=== PATIENT | female | born 1950 | race African-American/Black ===

== ENCOUNTER → 2016-12-13 | Outpatient (CLI) | payer MEDICARE | END | disposition home or self-care (01) | LOC: LABWHC1 16:15 | PROVIDERS: ATTEND Otolaryngology | DX: K11.7 Disturbances of salivary secretion (principal) | CPT/HCPCS: 36415; 86235 ==

== ENCOUNTER 2017-01-24 20:46 | Inpatient (IN) | payer MEDICARE ==
--- NOTE | 2017-01-24 21:35 | ED ---
Abdominal Pain HPI - General Chief Complaint: Abdominal Pain Stated Complaint: Allergic Reaction Time Seen by Provider: 01/24/17 21:24 Source: patient Mode of arrival: wheelchair Limitations: no limitations - History of Present Illness Initial Comments: Love is a 66-year-old female with past medical history significant for lap band procedure which is subsequently been removed as well as insulin-dependent diabetes. She presents to the emergency department today for evaluation of pressure-like epigastric abdominal pain nausea and vomiting. Patient reports that last week she made the decision to transition to a vegan, fat free diet in order to reverse her diabetes. Patient reports that for the past 7 days she has been compliant with this diet. She reports she's been eating primarily leafy green vegetables including Leah spinach. She reports she has had no and will products or fat source starches. She reports that since yesterday she feels like when she eats the food just stays right in her stomach. Patient reports that throughout the day today she has been experiencing pressure in her epigastric region. She reports that anytime she eats she begins heaving and subsequently vomits up her stomach contents. She reports that because of that she hasn't really tried to eat or drink much. She reports that the pain is persistent throughout the day without any relieving factors. The pain is worse with eating. She has nausea after eating. Her last bowel movement was at 3 PM and was normal in color, caliber and consistency. Patient has had multiple abdominal surgeries in the past including an open cholecystectomy greater than 20 years ago, an open appendectomy as a child, a lap band procedure and subsequent removal of lap band due to complications. She denies any history of bowel obstruction or any previous diagnosis of the abdominal adhesions. Patient denies any fever, chills, chest pain, shortness of breath. She does report that her epigastric abdominal pain is worse with deep breaths so she has chosen to take more rapid shallow breaths. She states that today she was wearing her CPAP machine because she felt more comfortable breathing with that today. - Related Data Home Medications Medication Instructions Recorded Confirmed Atenolol [Tenormin] 12.5 mg PO DAILY 01/13/14 01/24/17 Cyclobenzaprine [Flexeril] 10 mg PO DAILY PRN 01/13/14 01/24/17 Digoxin [Lanoxin] 125 mcg PO DAILY 01/13/14 01/24/17 Omeprazole 40 mg PO DAILY PRN 01/13/14 01/24/17 Triamterene-Hctz 37.5-25Mg 1 tab PO QAM 01/13/14 01/24/17 [Maxzide-25] amLODIPine [Norvasc] 5 mg PO DAILY 01/13/14 01/24/17 metFORMIN HCL [Glucophage] 500 mg PO BID 01/13/14 01/24/17 Allopurinol [Zyloprim] 100 mg PO DAILY 01/24/17 01/24/17 Benazepril HCl 10 mg PO HS 01/24/17 01/24/17 Meclizine [Antivert] 12.5 mg PO TID PRN 01/24/17 01/24/17 Naproxen 500 mg PO Q12H PRN 01/24/17 01/24/17 Rosuvastatin [Crestor] 10 mg PO HS 01/24/17 01/24/17 Allergies Allergy/AdvReac Type Severity Reaction Status Date / Time No Known Allergies Allergy Verified 01/24/17 21:48 Review of Systems ROS Statement: Those systems with pertinent positive or pertinent negative responses have been documented in the HPI. ROS Other: All systems not noted in ROS Statement are negative. Constitutional: Denies: fever, chills ENT: Denies: throat pain Respiratory: Denies: cough, dyspnea Cardiovascular: Denies: chest pain, palpitations Endocrine: Denies: fatigue Gastrointestinal: Reports: abdominal pain, nausea, vomiting. Denies: diarrhea, constipation Genitourinary: Denies: urgency, dysuria Musculoskeletal: Denies: back pain Skin: Denies: rash, lesions Neurological: Denies: headache, weakness Psychiatric: Denies: anxiety, depression Hematological/Lymphatic: Denies: easy bleeding, easy bruising Past Medical History Past Medical History: Atrial Fibrillation, Diabetes Mellitus, GERD/Reflux, Hypertension, Sleep Apnea/CPAP/BIPAP Additional Past Medical History / Comment(s): CHRONIC BACK PAIN. CPAP @ 11L. History of Any Multi-Drug Resistant Organisms: None Reported Past Surgical History: Hysterectomy Past Anesthesia/Blood Transfusion Reactions: Motion Sickness Past Psychological History: No Psychological Hx Reported Smoking Status: Never smoker Past Alcohol Use History: None Reported Past Drug Use History: None Reported General Exam Limitations: no limitations General appearance: alert, other (Appears uncomfortable) Head exam: Present: atraumatic, normocephalic, normal inspection Eye exam: Present: normal appearance, PERRL ENT exam: Present: normal exam Neck exam: Present: normal inspection Respiratory exam: Present: normal lung sounds bilaterally. Absent: respiratory distress, rhonchi, stridor, chest wall tenderness Cardiovascular Exam: Present: regular rate, normal rhythm, systolic murmur. Absent: bradycardia, tachycardia GI/Abdominal exam: Present: soft, distended, tenderness, normal bowel sounds. Absent: guarding, rebound, rigid, diminished bowel sounds, hyperactive bowel sounds, hypoactive bowel sounds, organomegaly Extremities exam: Present: normal inspection, full ROM, normal capillary refill. Absent: tenderness, pedal edema, joint swelling, calf tenderness Neurological exam: Present: alert, oriented X3 Psychiatric exam: Present: normal affect, normal mood Skin exam: Present: warm, dry, intact Course Vital Signs 01/24/17 01/24/17 21:05 23:49 Temperature 97.1 F L Pulse Rate 83 83 Respiratory 18 20 Rate Blood Pressure 185/93 149/76 O2 Sat by Pulse 100 99 Oximetry - Reevaluation(s) Reevaluation #1: She was reevaluated, morphine did not relieve her pain. Patient was advised that she has a small bowel obstruction an NG tube will be placed. Patient is agreeable she feels that having her stomach emptied will relieve her discomfort. 01/24/17 23:27 Medical Decision Making - Medical Decision Making Patient was seen and evaluated History was obtained from the patient and family at bedside Vital signs were reviewed History and physical exam are concerning for small bowel obstruction versus acute pancreatitis Labs and x-ray were ordered Morphine was ordered for pain and IV fluids were ordered due to patient's decreased by mouth intake today I reviewed the x-ray which reveals multiple air-fluid levels this is consistent with a small bowel obstruction an NG tube was ordered Vision care was discussed with Dr. Syed's APPLICATION SUPPORT ADMINISTRATOR who accepts admission to Dr Syed, request CT scan and consult to general surgery liquor commissioner Admission orders placed Surgery will be consulted once CT completed - Lab Data Result diagrams: 01/24/17 22:20 01/24/17 22:20 Lab Results 01/24/17 01/24/17 01/24/17 Range/Units 22:20 22:20 22:20 WBC 11.4 H (3.8-10.6) k/uL RBC 5.96 H (3.80-5.40) m/uL Hgb 16.6 H (11.4-16.0) gm/dL Hct 50.4 H (34.0-46.0) % MCV 84.7 (80.0-100.0) fL MCH 27.8 (25.0-35.0) pg MCHC 32.9 (31.0-37.0) g/dL RDW 16.1 H (11.5-15.5) % Plt Count 157 (150-450) k/uL Neutrophils % 86 % Lymphocytes % 9 % Monocytes % 3 % Eosinophils % 1 % Basophils % 0 % Neutrophils # 9.8 H (1.3-7.7) k/uL Lymphocytes # 1.0 (1.0-4.8) k/uL Monocytes # 0.3 (0-1.0) k/uL Eosinophils # 0.1 (0-0.7) k/uL Basophils # 0.0 (0-0.2) k/uL Anisocytosis Slight Sodium 136 L (137-145) mmol/L Potassium 4.4 (3.5-5.1) mmol/L Chloride 100 (98-107) mmol/L Carbon Dioxide 21 L (22-30) mmol/L Anion Gap 15 mmol/L BUN 16 (7-17) mg/dL Creatinine 1.00 (0.52-1.04) mg/dL Est GFR (MDRD) Af Amer >60 (>60 ml/min/1.73 sqM) Est GFR (MDRD) Non-Af 55 (>60 ml/min/1.73 sqM) Glucose 164 H (74-99) mg/dL Plasma Lactic Acid Simón 2.5 H* (0.7-2.0) mmol/L Calcium 10.1 (8.4-10.2) mg/dL Total Bilirubin 2.7 H (0.2-1.3) mg/dL AST 33 (14-36) U/L ALT 32 (9-52) U/L Alkaline Phosphatase 100 (38-126) U/L Troponin I (0.000-0.034) ng/mL Total Protein 8.1 (6.3-8.2) g/dL Albumin 4.7 (3.5-5.0) g/dL Lipase 220 (23-300) U/L 01/24/17 Range/Units 22:20 WBC (3.8-10.6) k/uL RBC (3.80-5.40) m/uL Hgb (11.4-16.0) gm/dL Hct (34.0-46.0) % MCV (80.0-100.0) fL MCH (25.0-35.0) pg MCHC (31.0-37.0) g/dL RDW (11.5-15.5) % Plt Count (150-450) k/uL Neutrophils % % Lymphocytes % % Monocytes % % Eosinophils % % Basophils % % Neutrophils # (1.3-7.7) k/uL Lymphocytes # (1.0-4.8) k/uL Monocytes # (0-1.0) k/uL Eosinophils # (0-0.7) k/uL Basophils # (0-0.2) k/uL Anisocytosis Sodium (137-145) mmol/L Potassium (3.5-5.1) mmol/L Chloride (98-107) mmol/L Carbon Dioxide (22-30) mmol/L Anion Gap mmol/L BUN (7-17) mg/dL Creatinine (0.52-1.04) mg/dL Est GFR (MDRD) Af Amer (>60 ml/min/1.73 sqM) Est GFR (MDRD) Non-Af (>60 ml/min/1.73 sqM) Glucose (74-99) mg/dL Plasma Lactic Acid Simón (0.7-2.0) mmol/L Calcium (8.4-10.2) mg/dL Total Bilirubin (0.2-1.3) mg/dL AST (14-36) U/L ALT (9-52) U/L Alkaline Phosphatase (38-126) U/L Troponin I 0.027 (0.000-0.034) ng/mL Total Protein (6.3-8.2) g/dL Albumin (3.5-5.0) g/dL Lipase (23-300) U/L Disposition Clinical Impression: Small bowel obstruction Disposition: ADMITTED IP TO THIS [facility] Condition: Good
[2017-01-24] MEDS ORDERED: MORPHINE SULFATE 4 MG/ML SYRINGE IV STA (21:43)
[2017-01-24] MEDS ORDERED: ONDANSETRON 4 MG/2 ML VIAL IVP STA (21:43)
[2017-01-24] MEDS ORDERED: SODIUM CHLORIDE 0.9% 1,000 ML IV STA (21:43)
[2017-01-24 22:33] LABS: Anisocytosis Slight; Basophils % (A) 0 %; CH 27.5; CHCM 32.7; Eosinophils # (A) 0.1 k/uL (0-0.7); Eosinophils % (A) 1 %; HCT 50.4 % (34.0-46.0); HDW 2.84; HGB 16.6 gm/dL (11.4-16.0); Large Platelets Flag Moderate; Luc # (Auto) 0.06; Luc % (Auto) 1; Lymphocytes % (A) 9 %; MCH 27.8 pg (25.0-35.0); MCHC 32.9 g/dL (31.0-37.0); MCV 84.7 fL (80.0-100.0); Mean Platelet Volume 11.5; Monocytes # (A) 0.3 k/uL (0-1.0); Monocytes % (A) 3 %; Neutrophils # (A) 9.8 k/uL (1.3-7.7); Neutrophils % (A) 86 %; RBC 5.96 m/uL (3.80-5.40); RDW 16.1 % (11.5-15.5); WBC 11.4 k/uL (3.8-10.6); WBC (Perox) 11.29
[2017-01-24 22:40] LABS: ALT 32 U/L (9-52); AST 33 U/L (14-36); Alkaline Phosphatase 100 U/L (38-126); Anion Gap 15 mmol/L; Blood Urea Nitrogen 16 mg/dL (7-17); Calcium 10.1 mg/dL (8.4-10.2); Carbon Dioxide 21 mmol/L (22-30); Chloride 100 mmol/L (98-107); Glucose 164 mg/dL (74-99); Non-African American GFR(MDRD) 55 (>60 ml/min/1.73 sqM); Potassium 4.4 mmol/L (3.5-5.1); Sodium 136 mmol/L (137-145); Total Bilirubin 2.7 mg/dL (0.2-1.3); Total Protein 8.1 g/dL (6.3-8.2)
--- NOTE | 2017-01-24 23:11 | XR ---
EXAM: XR Abdomen Complete, 2 or More Views CLINICAL HISTORY: Reason: abdominal pain TECHNIQUE: Frontal view of the abdomen/pelvis with upright view of the abdomen. COMPARISON: No relevant prior studies available. FINDINGS: There are multiple air-fluid levels throughout the abdomen, suspicious for small bowel obstruction. No free air. Cholecystectomy clips. Pelvic floor calcifications most likely reflect phleboliths. Cardiomegaly. IMPRESSION: Findings suspicious for SBO.
[2017-01-24] MEDS ORDERED: NALOXONE 0.4 MG/ML 1 ML VIAL IV PRN (23:21)
[2017-01-24] MEDS ORDERED: LIDOCAINE URO-JET JELLY 2% 5 ML KIT URETHRAL ONE (23:26)
[2017-01-24] MEDS ORDERED: RX INFO: IV CONTRAST WAS GIVEN 1 EACH MISC MISCELLANE PRN (23:26)
[2017-01-25] MEDS: MORPHINE SULFATE 4 MG/ML SYRINGE IV PRN ×2 (00:52→11:56)
[2017-01-25] MEDS: SODIUM CHLORIDE 0.9% 1,000 ML IV SCH ×3 (00:55→17:04)
--- NOTE | 2017-01-25 00:55 | CT ---
EXAM: CT Abdomen and Pelvis With Intravenous Contrast CLINICAL HISTORY: Reason: small bowel obstruction TECHNIQUE: Axial computed tomography images of the abdomen and pelvis with intravenous contrast. CTDI is 32.4 mGy and DLP is 2313.5 mGy-cm This CT exam was performed using one or more of the following dose reduction techniques: automated exposure control, adjustment of the mA and/or kV according to patient size, and/or use of iterative reconstruction technique. COMPARISON: No relevant prior studies available. FINDINGS: The lung bases are clear aside from minimal atelectasis. Cardiomegaly and trace pericardial effusion. There is a high-grade small bowel obstruction with a transition point in the right lower quadrant. Mesenteric edema with small-moderate volume ascites. No free air. Enteric tube terminating in the proximal stomach. Cholecystectomy may explain biliary dilation. Nonobstructing lower pole left renal calculus. Mild renal scarring. Pancreas, spleen, and adrenal glands are within normal limits. Hysterectomy. Mild aortoiliac atherosclerosis without aneurysm. No acute fracture. IMPRESSION: High-grade SBO, transition point in the RLQ. Free fluid and mesenteric edema. Cholecystectomy may explain biliary dilation. Incidental findings as detailed above.
[2017-01-25] MEDS ORDERED: hydrALAZINE HCL 20 MG/ML 1 ML VIAL IVP STA (01:45)
[2017-01-25] MEDS ORDERED: hydrALAZINE HCL 20 MG/ML 1 ML VIAL IVP PRN (01:46)
[2017-01-25] MEDS ORDERED: MECLIZINE 12.5 MG TAB PO PRN (01:50)
[2017-01-25] MEDS ORDERED: CYCLOBENZAPRINE 10 MG TAB PO PRN (01:50)
[2017-01-25 06:15] VITALS: BMI 39.1
[2017-01-25 06:15] LABS: Glucose,Whole Blood 152 mg/dL (75-99)
[2017-01-25] MEDS ORDERED: ENOXAPARIN 40 MG/0.4 ML SYRINGE SQ SCH (09:00)
--- NOTE | 2017-01-25 10:26 | P.GSCN ---
<Yoanna Acuna - Last Filed: 01/25/17 11:17> History of Present Illness Consult date: 01/25/17 Reason for Consult: Abdominal Pain History of present illness: 66-year-old female being seen at the request of the attending for a surgical eval for abdominal pain. Patient stated that she presented on day of admission to the emergency room after she been experiencing a sudden onset of a pressure sensation midepigastric area with nausea and did vomit once. She stated that the only thing that is new is that she started on a vegan diet has been on it for the last 7 days an attempt at weight loss control address her diabetes. Patient states she's been eating primarily green vegetables such as kale and spinach. Patient states over the last 24 hours prior to coming into the emergency room she felt that when she ate the food leafy green vegetables that it would stay in her stomach and she get discomfort with a pressure sensation in the epigastric area. Patient states that she has not had prior episodes. Patient states the pain seems to be worse if she eats she develops a nausea sensation after eating. Patient stated her last bowel movement which was normal in color and caliber and consistency and was painless was around 3:00 in the afternoon on the day of admission to the emergency room. According to the patient she has had prior abdominal surgeries 20 years: Open cholecystectomy, appendectomy as a child, LAP-BAND procedure with subsequent removal of the LAP- BAND due to complications 8-10 years ago. Additionally patient states she had a colonoscopy she thinks within the last year done by Dr. [facility] and was told there was no acute findings. Patient states with the episode she has not had any fever or chills. In the computerized record shows on January 2014 patient did have a colonoscopy with a biopsy: Was normal except for a 5 mm cecal polyp In the emergency room the patient did have CAT scan of the abdomen pelvis with IV contrast in summary it did show high-grade small bowel obstruction transition point left lower quadrant Patient states that she does live in [place] at least 6 months out of the year. Was told she has a cardiac history had a heart catheterization to her knowledge there was no stents placed with no acute findings. Patient states her glass block bender in [place] address as hypertensive meds icing patient about her irregular heartbeat atrial fibrillation patient states the only thing she takes is aspirin has never been on a blood thinner she recalls Patient currently is denying any chest pain dizziness or lightheadedness or shortness of breath when questioning patient states she's type 2 diabetes non- insulin hemoglobin A1c in November was 6.1 and is on metformin only. Patient states that she did start the vegan diet in hopes that it would address her blood sugars Review of Systems Essentially unremarkable except as mentioned in the present illness Past Medical History Past Medical History: Atrial Fibrillation, Diabetes Mellitus, GERD/Reflux, Hypertension, Sleep Apnea/CPAP/BIPAP Additional Past Medical History / Comment(s): CHRONIC BACK PAIN. CPAP @ 11L. History of Any Multi-Drug Resistant Organisms: None Reported Past Surgical History: Cholecystectomy, Hysterectomy Past Anesthesia/Blood Transfusion Reactions: Motion Sickness Past Psychological History: No Psychological Hx Reported Smoking Status: Never smoker Past Alcohol Use History: None Reported Past Drug Use History: None Reported - Past Family History Mother Family Medical History: Diabetes Mellitus, Hypertension Medications and Allergies Home Medications Medication Instructions Recorded Confirmed Type Atenolol [Tenormin] 12.5 mg PO DAILY 01/13/14 01/24/17 History Cyclobenzaprine [Flexeril] 10 mg PO DAILY PRN 01/13/14 01/24/17 History Digoxin [Lanoxin] 125 mcg PO DAILY 01/13/14 01/24/17 History Omeprazole 40 mg PO DAILY PRN 01/13/14 01/24/17 History Triamterene-Hctz 37.5-25Mg 1 tab PO QAM 01/13/14 01/24/17 History [Maxzide-25] amLODIPine [Norvasc] 5 mg PO DAILY 01/13/14 01/24/17 History metFORMIN HCL [Glucophage] 500 mg PO BID 01/13/14 01/24/17 History Allopurinol [Zyloprim] 100 mg PO DAILY 01/24/17 01/24/17 History Benazepril HCl 10 mg PO HS 01/24/17 01/24/17 History Meclizine [Antivert] 12.5 mg PO TID PRN 01/24/17 01/24/17 History Naproxen 500 mg PO Q12H PRN 01/24/17 01/24/17 History Rosuvastatin [Crestor] 10 mg PO HS 01/24/17 01/24/17 History Allergies Allergy/AdvReac Type Severity Reaction Status Date / Time No Known Allergies Allergy Verified 01/24/17 21:48 Surgical - Exam Vital Signs Temp Pulse Resp BP Pulse Ox 97.1 F L 83 18 185/93 100 01/24/17 21:05 01/24/17 21:05 01/24/17 21:05 01/24/17 21:05 01/24/17 21:05 GENERAL APPEARANCE: pleasant 66-year-old female patient is alert, oriented, in no acute distress. patient states she seems to have more discomfort if she moves. Nasal gastric tube in place clear gastric secretions noted VITAL SIGNS: Reviewed HEENT: Head is normocephalic and atraumatic. Pupils are equal and reactive. The nares are patent. Oropharynx is clear without lesions. NECK: Supple without lymphadenopathy. Traches midline. HEART: S1, S2. Irregular rate and rhythm. no murmur noted denying chest pain twelve-lead EKG atrial fibrillation controlled ventricular response LUNGS: No crackles or wheezes are heard. adequate air movement bilaterally no cough noted ABDOMEN: Soft, slight epigastric discomfort radiates to right lower quadrant ondistended with good bowel sounds. No peritoneal signs. No palpable organomegaly or masses. a well-healed scar right lower quadrant from prior cholecystectomy EXTREMITIES: Normal skin color and turgor. No cyanosis, rash, ulceration, clubbing or edema. Radial pedal pulses are 2/4 bilaterally. NEUROLOGICAL: No focal deficits. Strength and sensation are grossly intact. Results - Labs 01/24/17 22:20 01/24/17 22:20 Abnormal Lab Results - Last 24 Hours (Table) 01/24/17 01/24/17 01/24/17 Range/Units 22:20 22:20 22:20 WBC 11.4 H (3.8-10.6) k/uL RBC 5.96 H (3.80-5.40) m/uL Hgb 16.6 H (11.4-16.0) gm/dL Hct 50.4 H (34.0-46.0) % RDW 16.1 H (11.5-15.5) % Neutrophils # 9.8 H (1.3-7.7) k/uL Sodium 136 L (137-145) mmol/L Carbon Dioxide 21 L (22-30) mmol/L Glucose 164 H (74-99) mg/dL POC Glucose (mg/dL) (75-99) mg/dL Plasma Lactic Acid Simón 2.5 H* (0.7-2.0) mmol/L Total Bilirubin 2.7 H (0.2-1.3) mg/dL 01/25/17 Range/Units 05:51 WBC (3.8-10.6) k/uL RBC (3.80-5.40) m/uL Hgb (11.4-16.0) gm/dL Hct (34.0-46.0) % RDW (11.5-15.5) % Neutrophils # (1.3-7.7) k/uL Sodium (137-145) mmol/L Carbon Dioxide (22-30) mmol/L Glucose (74-99) mg/dL POC Glucose (mg/dL) 152 H (75-99) mg/dL Plasma Lactic Acid Simón (0.7-2.0) mmol/L Total Bilirubin (0.2-1.3) mg/dL Diabetes panel 01/24/17 Range/Units 22:20 Sodium 136 L (137-145) mmol/L Potassium 4.4 (3.5-5.1) mmol/L Chloride 100 (98-107) mmol/L Carbon Dioxide 21 L (22-30) mmol/L BUN 16 (7-17) mg/dL Creatinine 1.00 (0.52-1.04) mg/dL Glucose 164 H (74-99) mg/dL Calcium 10.1 (8.4-10.2) mg/dL AST 33 (14-36) U/L ALT 32 (9-52) U/L Alkaline Phosphatase 100 (38-126) U/L Total Protein 8.1 (6.3-8.2) g/dL Albumin 4.7 (3.5-5.0) g/dL Calcium panel 01/24/17 Range/Units 22:20 Calcium 10.1 (8.4-10.2) mg/dL Albumin 4.7 (3.5-5.0) g/dL Pituitary panel 01/24/17 Range/Units 22:20 Sodium 136 L (137-145) mmol/L Potassium 4.4 (3.5-5.1) mmol/L Chloride 100 (98-107) mmol/L Carbon Dioxide 21 L (22-30) mmol/L BUN 16 (7-17) mg/dL Creatinine 1.00 (0.52-1.04) mg/dL Glucose 164 H (74-99) mg/dL Calcium 10.1 (8.4-10.2) mg/dL Adrenal panel 01/24/17 Range/Units 22:20 Sodium 136 L (137-145) mmol/L Potassium 4.4 (3.5-5.1) mmol/L Chloride 100 (98-107) mmol/L Carbon Dioxide 21 L (22-30) mmol/L BUN 16 (7-17) mg/dL Creatinine 1.00 (0.52-1.04) mg/dL Glucose 164 H (74-99) mg/dL Calcium 10.1 (8.4-10.2) mg/dL Total Bilirubin 2.7 H (0.2-1.3) mg/dL AST 33 (14-36) U/L ALT 32 (9-52) U/L Alkaline Phosphatase 100 (38-126) U/L Total Protein 8.1 (6.3-8.2) g/dL Albumin 4.7 (3.5-5.0) g/dL Assessment and Plan Plan: Impression Present on admission nausea vomiting right lower quadrant pain radiating to the epigastric area suspect due to an early small bowel obstruction Type 2 diabetes non-insulin hemoglobin A1c in November 10 per patient report Obesity BMI 39 Hypertension essential Present on admission atrial fibrillation per 12-lead EKG unable to determine new onset or chronic on no anticoagulation except aspirin Elevated hemoglobin of 16 Plan continue IV fluid as ordered Continue nasogastric tube to intermittent Suction pain control DVT and GI prophylaxis Continue monitor surgical coarse with further surgical recommendations pending The above impression and plan of care have been discussed and directed by signing physician. Yoanna Acuna nurse practitioner acting as scribe for signing physician. <Carli Sales - Last Filed: 01/25/17 11:31> Surgical - Exam Vital Signs Temp Pulse Resp BP Pulse Ox 97.1 F L 83 18 185/93 100 01/24/17 21:05 01/24/17 21:05 01/24/17 21:05 01/24/17 21:05 01/24/17 21:05 Results - Labs 01/24/17 22:20 01/24/17 22:20 Abnormal Lab Results - Last 24 Hours (Table) 01/24/17 01/24/17 01/24/17 Range/Units 09:40 22:20 22:20 WBC 11.4 H (3.8-10.6) k/uL RBC 5.96 H (3.80-5.40) m/uL Hgb 16.6 H (11.4-16.0) gm/dL Hct 50.4 H (34.0-46.0) % RDW 16.1 H (11.5-15.5) % Neutrophils # 9.8 H (1.3-7.7) k/uL Sodium 136 L (137-145) mmol/L Carbon Dioxide 21 L (22-30) mmol/L Glucose 164 H (74-99) mg/dL POC Glucose (mg/dL) (75-99) mg/dL Plasma Lactic Acid Simón (0.7-2.0) mmol/L Total Bilirubin 2.7 H (0.2-1.3) mg/dL Ur Specific Parks >1.050 H (1.001-1.035) Urine Protein 1+ H (Negative) Urine Mucus Rare H (None) /hpf 01/24/17 01/25/17 Range/Units 22:20 05:51 WBC (3.8-10.6) k/uL RBC (3.80-5.40) m/uL Hgb (11.4-16.0) gm/dL Hct (34.0-46.0) % RDW (11.5-15.5) % Neutrophils # (1.3-7.7) k/uL Sodium (137-145) mmol/L Carbon Dioxide (22-30) mmol/L Glucose (74-99) mg/dL POC Glucose (mg/dL) 152 H (75-99) mg/dL Plasma Lactic Acid Simón 2.5 H* (0.7-2.0) mmol/L Total Bilirubin (0.2-1.3) mg/dL Ur Specific Parks (1.001-1.035) Urine Protein (Negative) Urine Mucus (None) /hpf Diabetes panel 01/24/17 Range/Units 22:20 Sodium 136 L (137-145) mmol/L Potassium 4.4 (3.5-5.1) mmol/L Chloride 100 (98-107) mmol/L Carbon Dioxide 21 L (22-30) mmol/L BUN 16 (7-17) mg/dL Creatinine 1.00 (0.52-1.04) mg/dL Glucose 164 H (74-99) mg/dL Calcium 10.1 (8.4-10.2) mg/dL AST 33 (14-36) U/L ALT 32 (9-52) U/L Alkaline Phosphatase 100 (38-126) U/L Total Protein 8.1 (6.3-8.2) g/dL Albumin 4.7 (3.5-5.0) g/dL Calcium panel 01/24/17 Range/Units 22:20 Calcium 10.1 (8.4-10.2) mg/dL Albumin 4.7 (3.5-5.0) g/dL Pituitary panel 01/24/17 Range/Units 22:20 Sodium 136 L (137-145) mmol/L Potassium 4.4 (3.5-5.1) mmol/L Chloride 100 (98-107) mmol/L Carbon Dioxide 21 L (22-30) mmol/L BUN 16 (7-17) mg/dL Creatinine 1.00 (0.52-1.04) mg/dL Glucose 164 H (74-99) mg/dL Calcium 10.1 (8.4-10.2) mg/dL Adrenal panel 01/24/17 Range/Units 22:20 Sodium 136 L (137-145) mmol/L Potassium 4.4 (3.5-5.1) mmol/L Chloride 100 (98-107) mmol/L Carbon Dioxide 21 L (22-30) mmol/L BUN 16 (7-17) mg/dL Creatinine 1.00 (0.52-1.04) mg/dL Glucose 164 H (74-99) mg/dL Calcium 10.1 (8.4-10.2) mg/dL Total Bilirubin 2.7 H (0.2-1.3) mg/dL AST 33 (14-36) U/L ALT 32 (9-52) U/L Alkaline Phosphatase 100 (38-126) U/L Total Protein 8.1 (6.3-8.2) g/dL Albumin 4.7 (3.5-5.0) g/dL
--- NOTE | 2017-01-25 10:32 | XR ---
EXAMINATION TYPE: XR abdomen 2V DATE OF EXAM: 01/25/2017 CLINICAL HISTORY: Bowel obstruction progress study. TECHNIQUE: Supine and upright views of the abdomen are obtained. COMPARISON: Abdominal x-ray and CT abdomen and pelvis from yesterday. FINDINGS: Nasogastric tube has been retracted since CT and now terminates above diaphragm, recommend advancing at least 11 cm. There are persistent gaseous dilated small bowel loops in the upper to mid abdomen. Some gas is seen in nondistended small bowel loops in the right lower quadrant. Gas and feca l material is seen in nondistended colon. No pneumoperitoneum is present. Cholecystectomy clips are redemonstrated. Lung bases remain clear. Os seous structures are intact. Contrast from recent CT is seen in the pelvis. Scattered pelvic phleboli ths are redemonstrated. Impression: Findings consistent with distal small bowel obstruction remain present. No significant ch chai from one day earlier. Nasogastric tube needs to be advanced.
[2017-01-25 11:18] LABS: Appearance,Urine Clear (Clear); Bilirubin,Urine Negative (Negative); Glucose,Urine (UA) Negative (Negative); Ketones,Urine Negative (Negative); Leukocyte Esterase,Urine Negative (Negative); Mucus,Urine Rare /hpf; Nitrite,Urine Negative (Negative); PH, Urine 6.5 (5.0-8.0); Particle Count 1803; Protein,Urine 1+ (Negative); Squamous Epithelial Cell,Urine 2 /hpf (0-4); UA Billing (MACRO vs. MICRO) MICRO; Urobilinogen,Urine <2.0 mg/dL (<2.0); WBC,Urine 1 /hpf (0-5)
[2017-01-25 11:23] LABS: Specific Gravity,Urine >1.050 (1.001-1.035)
[2017-01-25] MEDS: DIGOXIN 125 MCG TAB PO SCH (11:26)
[2017-01-25] MEDS: amLODIPine 5 MG TAB PO SCH (11:26)
[2017-01-25] MEDS: PANTOPRAZOLE 40 MG/10 ML VIAL IV SCH (11:26)
[2017-01-25] MEDS: ALLOPURINOL 100 MG TAB PO SCH (11:26)
[2017-01-25 11:53] LABS: Glucose,Whole Blood 117 mg/dL (75-99)
[2017-01-25] MEDS ORDERED: MORPHINE SULFATE 2 MG/ML SYRINGE IV PRN (12:45)
[2017-01-25] MEDS ORDERED: ONDANSETRON 4 MG/2 ML VIAL IVP PRN (12:46)
[2017-01-25 13:07] LABS: INR 1.1 (<1.2)
[2017-01-25 13:36] LABS: Hemoglobin A1C 6.2 % (4.2-6.1)
--- NOTE | 2017-01-25 14:08 | HP ---
HISTORY AND PHYSICAL DATE OF ADMISSION: 01/24/2017 PRESENTING COMPLAINT: Abdominal pain. HISTORY OF PRESENTING COMPLAINT: This is a very pleasant, 66-year-old patient of Dr. Plasencia who spends half the time in [place] and half the time in [place]. Chronic stable medical conditions include atrial fibrillation, for which he has opted not to take any anticoagulation only an aspirin, diabetes, GERD, hypertension, also sleep apnea. Patient for 2 days having increasing abdominal pain, some nausea, vomiting. Had a bowel movement yesterday. Normally has a bowel movement every other day. CT scan in the ER confirmed a high-grade small-bowel obstruction. NG tube was placed to which she feels a bit better. Abdominal pain has gone down but still present. no fever. REVIEW OF SYSTEMS: CONSTITUTIONAL: Tired. HEENT: None. RESPIRATORY: None. CARDIOVASCULAR: None. GASTROINTESTINAL: As above. GENITOURINARY: None. MUSCULOSKELETAL: None. DERMATOLOGICAL: None. HEMATOLOGIC: None. LYMPHATIC: None. PSYCHIATRY: None. NEUROLOGICAL: None. PAST HISTORY: Atrial fibrillation, diabetes, GERD, hypertension, obstructive sleep apnea. PAST SURGICAL HISTORY: Cholecystectomy, hysterectomy. SOCIAL HISTORY: No smoking. No alcohol. . FAMILY HISTORY: Diabetes and hypertension. HOME MEDICATIONS: 1. Glucophage 500 mg p.o. b.i.d. 2. Crestor 10 mg p.o. q.h.s. 3. Digoxin 125 mcg p.o. daily. 4. Flexeril 10 mg p.o. daily p.r.n. 5. Benazepril 10 mg p.o. q.h.s. 6. Tenormin 12.5 mg p.o. daily. 7. Norvasc 5 mg p.o. daily. 8. Maxzide 37.5/25 one tablet p.o. daily. 9. Omeprazole 40 mg p.o. daily p.r.n. 10.Naproxen 500 mg p.o. daily p.r.n. 11.Antivert 12.5 p.o. t.i.d. p.r.n. 12.Allopurinol 100 mg p.o. daily. ALLERGIES: None. PHYSICAL EXAMINATION: Vital signs on presentation: Temperature 97.1, pulse 83, respiratory rate 18, blood pressure 185/93, repeat blood pressure 149/76, pulse ox 100% on room air. GENERAL APPEARANCE: Well built, BMI 39.1, lying in bed, tired-appearing. EYES: Pupils equal, conjunctivae normal. HEENT: Oral cavity normal with an NG tube in place. NECK: JVD not raised. Mass not palpable. RESPIRATORY: Effort normal. LUNGS: Fair air entry. CARDIOVASCULAR: Heart sounds regular, no edema. ABDOMEN: Mild diffused tenderness. No guarding or rigidity. Liver, spleen not palpable. LYMPHATIC: No lymph node palpable. PSYCHIATRY: Alert and oriented x3. Mood and affect normal. NEUROLOGICAL: Pupils equal, cranial nerves grossly intact. Power and sensation grossly intact. INVESTIGATIONS: White count 11.4, hemoglobin 16.6, potassium 4.4, BUN and creatinine are normal. Lactic acid 2.5, lipase 220. Abdominal CT scan showing high-grade small bowel obstruction. ASSESSMENT: 1. Acute small-bowel obstruction, present on admission. 2. Permanent atrial fibrillation, rate controlled. Patient has not chosen to be on anticoagulation, on aspirin only. 3. Diabetes mellitus type 2, on oral hypoglycemic. 4. Gastroesophageal reflux disease. 5. Essential hypertension. 6. Obstructive sleep apnea. Uses a CPAP machine. 7. Obesity, body mass index 39.1. PLAN: Patient with NG tube in place. Feeling better regarding that. Home medications are resumed. Will allow p.o. medications. Care was discussed with the patient. General Surgery was consulted. Questions were answered. MMMARYAL / RAYN: [id number] /
--- NOTE | 2017-01-25 14:15 | P.PN ---
Progress Note - Text Patient was seen and evaluated. NGT removed and replaced with lager caliber tube of 16 Fr and now working. High grade obstruction described.
--- NOTE | 2017-01-25 14:30 | P.PN ---
Progress Note - Text Patient has new onset atrial fibrillation. Will need cardiac risk assessment and treatment.
--- NOTE | 2017-01-25 15:09 | XR ---
EXAMINATION TYPE: XR abdomen 1V DATE OF EXAM: 01/25/2017 3:00 PM CLINICAL HISTORY: NG tube repositioning TECHNIQUE: Single AP portable upright view of the abdomen is obtained. COMPARISON: Abdominal x-ray from earlier today. FINDINGS: Nasogastric tube is advanced in the interval and now has tip in the upper abdomen just righ t of midline likely near gastric antrum. There is interval improvement in distention of stomach. Gas prominent small bowel loops in the left u pper to mid abdomen are slightly less prominent versus prior. Cholecystectomy clips are noted. No pne umoperitoneum is seen. Lung bases remain clear. Heart size remains prominent. Osseous structures are somewhat demineralized. IMPRESSION: Satisfactory positioning of NG tube after repositioning. Some improvement in distention o f stomach and proximal small bowel loops is also felt present.
[2017-01-25] MEDS: ATENOLOL 25 MG TAB PO SCH (17:04)
[2017-01-25] MEDS: HEPARIN SODIUM,PORCINE 5,000 UNIT/ML 1 ML VIAL SQ SCH (17:04)
[2017-01-25 17:59] LABS: Glucose,Whole Blood 115 mg/dL (75-99)
[2017-01-25] MEDS: LISINOPRIL 10 MG TAB PO SCH (20:33)
[2017-01-25] MEDS: ATORVASTATIN 20 MG TAB PO SCH (20:33)
[2017-01-26 00:28] LABS: Glucose,Whole Blood 105 mg/dL (75-99)
[2017-01-26] MEDS: HEPARIN SODIUM,PORCINE 5,000 UNIT/ML 1 ML VIAL SQ SCH ×3 (01:03→17:04)
[2017-01-26 06:02] LABS: Glucose,Whole Blood 102 mg/dL (75-99)
[2017-01-26] MEDS: ATENOLOL 25 MG TAB PO SCH (08:08)
--- NOTE | 2017-01-26 08:55 | P.PN ---
<Arleen Acunarosa Gonzalez - Last Filed: 01/26/17 08:48> Subjective 66-year-old female being seen sitting up in a chair. Patient states she had a small "almost like a pebble bowel movement this morning is passing gas rectally. Nasal gastric tube in place 350ml out for the last 8 hours. Patient states abdominal pain is improving. Reports no nausea sensation. Patient states "thinking about it remember I had an irregular heartbeat and I chose not to be put on a blood thinner take aspirin only. Patient states she has seen a fireworks display specialist in [place] where she lives for 7 months out of the year. Also noted cardiac murmur this morning questioning patient states she remembers she was told she had a murmur as well patient has poor past medical history recall Objective - Vital Signs Vital signs: Vital Signs Temp 98.2 F 01/26/17 00:30 Pulse 60 01/26/17 00:30 Resp 16 01/26/17 00:30 BP 143/80 01/26/17 00:30 Pulse Ox 100 01/26/17 00:30 Intake & Output 01/25/17 01/26/17 01/26/17 18:59 06:59 18:59 Intake Total 1208 Output Total 950 150 250 Balance 258 -150 -250 Intake: Intake, IV Titration 938 Amount Sodium Chloride 0.9% 1, 938 000 ml @ 125 mls/hr IV . Q8H [facility] Rx#:[id number] Oral 270 Output: Gastric Drainage 150 150 250 Urine 800 Other: # Voids 1 3 - Exam Physical exam 66-year-old female sitting up in a chair nasal gastric tube in place pleasant talkative states less abdominal pain Lungs adequate air movement bilaterally on room air no cough noted no wheezing noted Heart S1-S2 audible irregular positive murmur monitor atrial fibrillation controlled ventricular response rate in the 70s denying chest pain Abdomen slightly distended firm few hypoactive bowel tones nasal gastric tube in place states no nausea no vomiting urinating no difficulty small bowel movement reported Extremities no edema noted - Labs CBC & Chem 7: 01/24/17 22:20 01/24/17 22:20 Labs: Abnormal Lab Results - Last 24 Hours (Table) 01/24/17 01/25/17 01/25/17 Range/Units 09:40 11:40 11:48 POC Glucose (mg/dL) 117 H (75-99) mg/dL Hemoglobin A1c 6.2 H (4.2-6.1) % Ur Specific [place] >1.050 H (1.001-1.035) Urine Protein 1+ H (Negative) Urine Mucus Rare H (None) /hpf 01/25/17 01/26/17 01/26/17 Range/Units 17:38 00:06 05:58 POC Glucose (mg/dL) 115 H 105 H 102 H (75-99) mg/dL Hemoglobin A1c (4.2-6.1) % Ur Specific [place] (1.001-1.035) Urine Protein (Negative) Urine Mucus (None) /hpf Assessment and Plan Plan: Impression Present on admission nausea vomiting right lower quadrant pain radiating to the epigastric area suspect due to an early small bowel obstruction Type 2 diabetes non-insulin hemoglobin A1c 6.2 Obesity BMI 39 Hypertension essential Present on admission atrial fibrillation per 12-lead EKG unable to determine new onset or chronic on no anticoagulation except aspirin Elevated hemoglobin of 16 Cardiac murmur noted Plan continue IV fluid as ordered Continue nasogastric tube to intermittent Suction pain control DVT and GI prophylaxis Continue monitor surgical coarse with further surgical recommendations pending Await cardiology input Follow-up on echocardiogram pending Follow-up on abdominal x-ray this morning if a noted improvement nasal gastric tube will be clamped and removed and will monitor The above impression and plan of care have been discussed and directed by signing physician. Yoanna Acuna nurse practitioner acting as scribe for signing physician. <Carli Sales N - Last Filed: 01/26/17 16:21> Objective - Vital Signs Vital signs: Vital Signs Temp 97.6 F 01/26/17 15:44 Pulse 74 01/26/17 15:44 Resp 16 01/26/17 07:00 BP 147/84 01/26/17 15:44 Pulse Ox 98 01/26/17 15:44 Intake & Output 01/25/17 01/26/17 01/26/17 18:59 06:59 18:59 Intake Total 1208 1000 Output Total 950 150 250 Balance 258 -150 750 Weight 106.59 kg Intake: IV 1000 Sodium Chloride 0.9% 1, 1000 000 ml @ 125 mls/hr IV . Q8H [facility] Rx#:[id number] Intake, IV Titration 938 Amount Sodium Chloride 0.9% 1, 938 000 ml @ 125 mls/hr IV . Q8H [facility] Rx#:[id number] Oral 270 Output: Gastric Drainage 150 150 250 Urine 800 Other: # Voids 1 3 - Exam GENERAL: Well developed and in no acute distress. Pleasant. HEENT: No sclera icterus. Extraocular movements grossly intact. Moist buccal mucosa. Head is atraumatic, normocephalic. Hears conversational speech. No nasal drainage. NG tube present. NECK: Supple without lymphadenopathy. CHEST: Non-labored respirations and equal bilateral excursions. CARDIOVASCULAR: Irregular rate and rhythm. Palpable 2+ radial pulses. ABDOMEN: Soft, decreased abdominal distention. No peritonitis. Nontender. MUSCULOSKELETAL: No clubbing, cyanosis or edema. NEUROLOGIC: No focal or lateralizing signs. PSYCH: Appropriate affect. Alert and oriented to person, place and time. SKIN: Good skin turgor. Well perfused. - Labs CBC & Chem 7: 01/24/17 22:20 01/24/17 22:20 Labs: Abnormal Lab Results - Last 24 Hours (Table) 01/25/17 01/26/17 01/26/17 Range/Units 17:38 00:06 05:58 POC Glucose (mg/dL) 115 H 105 H 102 H (75-99) mg/dL 01/26/17 Range/Units 12:18 POC Glucose (mg/dL) 103 H (75-99) mg/dL Assessment and Plan Plan: Film reviewed demonstrating persistent small bowel obstruction. Clinically she is is passing flatus. Potential surgical intervention while inpatient.
--- NOTE | 2017-01-26 09:14 | XR ---
EXAMINATION TYPE: XR abdomen 2V DATE OF EXAM: 01/26/2017 9:05 AM CLINICAL HISTORY: Bowel obstruction TECHNIQUE: Single supine KUB image of the abdomen is obtained. COMPARISON: None. FINDINGS: Enteric tube is again appropriately placed with its fenestrated portion beyond the gastroes ophageal junction in the region of gastric antrum. Cholecystectomy clips are seen within the right up per quadrant. There are persistent dilated loops of small bowel stacking upon one another with differential air-flu id levels. Small bowel measures up to 5.5 cm and is scattered within the mid abdomen and left lower q uadrant. Numerous fluid was are seen within the pelvis. Degenerative changes are appreciated of the l umbosacral junction. IMPRESSION: Persistent small bowel loop dilation and differential air-fluid levels compatible with sm all bowel obstruction. Small bowel measures up to 5.5 cm. Enteric tube remains appropriately placed.
[2017-01-26] MEDS: amLODIPine 5 MG TAB PO SCH (09:41)
[2017-01-26] MEDS: DIGOXIN 125 MCG TAB PO SCH (09:41)
[2017-01-26] MEDS: PANTOPRAZOLE 40 MG/10 ML VIAL IV SCH (09:43)
[2017-01-26] MEDS: ALLOPURINOL 100 MG TAB PO SCH (09:49)
--- NOTE | 2017-01-26 10:11 | ECHOF ---
Referral Reason:New A. fib MEASUREMENTS -------- HEIGHT: 165.1 cm WEIGHT: 106.1 kg BP: 154/88 RVIDd: 2.8 cm (< 3.3) IVSd: 1.6 cm (0.6 - 1.1) LVIDd: 4.5 cm (3.9 - 5.3) LVPWd: 1.5 cm (0.6 - 1.1) IVSs: 1.9 cm LVIDs: 3.0 cm LVPWs: 1.8 cm LA Diam: 3.9 cm (2.7 - 3.8) LAESV Index (A-L): 54.07 ml/m Ao Diam: 3.2 cm (2.0 - 3.7) AV Cusp: 1.7 cm (1.5 - 2.6) MV EXCURSION: 16.095 mm (> 18.000) MV EF SLOPE: 54 mm/s (70 - 150) EPSS: 0.1 cm AV maxP.01 mmHg AV meanP.68 mmHg AR PHT: 795 ms RAP: 5.00 mmHg RVSP: 32.77 mmHg FINDINGS -------- Atrial fibrillation. This was a technically good study. The left ventricular size is normal. There is moderate concentric left ventricular hypertrophy. Overall left ventricular systolic function is normal with, an EF between 55 - 60 %. The right ventricle is normal in size. LA is severely dilated >40 ml/m2 The right atrium is normal in size. There is mild to moderate aortic valve sclerosis. There is lcnt-mz-akqcyjze aortic regurgitation. There is mild aortic stenosis present. Peak/mean gradient across the Aortic Valve is 25.01mmHg / 12.68mmHg. The mitral valve leaflets are mildly thickened. Mild mitral annular calcification present. There is trace to mild mitral regurgitation. Mild tricuspid regurgitation present. Right ventricular systolic pressure is normal at < 35 mmHg. Trace/mild (physiologic) pulmonic regurgitation. The aortic root size is normal. IVC Not well visulized. There is a small, generalized pericardial effusion present. CONCLUSIONS -------- 1. Atrial fibrillation. 2. There is mild aortic stenosis present. 3. Peak/mean gradient across the Aortic Valve is 25.01mmHg / 12.68mmHg. 4. The mitral valve leaflets are mildly thickened. 5. Mild mitral annular calcification present. 6. There is trace to mild mitral regurgitation. 7. Mild tricuspid regurgitation present. 8. Right ventricular systolic pressure is normal at < 35 mmHg. 9. Trace/mild (physiologic) pulmonic regurgitation. 10. The aortic root size is normal. 11. IVC Not well visulized. 12. This was a technically good study. 13. There is a small, generalized pericardial effusion present. 14. The left ventricular size is normal. 15. There is moderate concentric left ventricular hypertrophy. 16. The right ventricle is normal in size. 17. LA is severely dilated >40 ml/m2 18. The right atrium is normal in size. 19. There is mild to moderate aortic valve sclerosis. 20. There is graf-qo-faizboyy aortic regurgitation. TRANSIT WORKER: Xochilt Lantigua RDCS
[2017-01-26] MEDS: SODIUM CHLORIDE 0.9% 1,000 ML IV SCH (10:53)
--- NOTE | 2017-01-26 12:04 | P.CRDCN ---
History of Present Illness Consult date: 01/26/17 History of present illness: This is a 66-year-old -Bangladeshi pleasant female. She presented to the hospital with abdominal pain and was found to have a small bowel obstruction. We have been asked to see the patient in consultation for surgical clearance. The patient has a known history of atrial fibrillation, hypertension, hyperlipidemia, diabetes mellitus and gastroesophageal reflux disease. She is maintained on digoxin 125 g daily, rosuvastatin 10 mg daily, benazepril 10 mg daily, atenolol 12.5 mg daily, Norvasc 5 mg daily and Maxzide 37.5/25 daily. She lives in [place] during the winter and follows regularly with a auto body repair teacher there. She states she was recommended to take anticoagulation and decided against it. CHADS-VASC score 4. Echocardiogram was performed and indicates preserved LV function. She denies chest pain, shortness of breath, palpitations or dizziness. She complains only of mild abdominal discomfort and irritation from NG tube. She states she is passing gas and has stooled once overnight. At this time she believes surgery may be on hold. Telemetry tracing indicates persistent atrial fibrillation with maintained ventricular response. Review of Systems Extensive review of systems performed, negative except mentioned in HPI. Past Medical History Past Medical History: Atrial Fibrillation, Diabetes Mellitus, GERD/Reflux, Hypertension, Sleep Apnea/CPAP/BIPAP Additional Past Medical History / Comment(s): CHRONIC BACK PAIN. CPAP @ 11L. History of Any Multi-Drug Resistant Organisms: None Reported Past Surgical History: Cholecystectomy, Hysterectomy Past Anesthesia/Blood Transfusion Reactions: Motion Sickness Past Psychological History: No Psychological Hx Reported Smoking Status: Never smoker Past Alcohol Use History: None Reported Past Drug Use History: None Reported - Past Family History Mother Family Medical History: Diabetes Mellitus, Hypertension Medications and Allergies Home Medications Medication Instructions Recorded Confirmed Type Atenolol [Tenormin] 12.5 mg PO DAILY 01/13/14 01/24/17 History Cyclobenzaprine [Flexeril] 10 mg PO DAILY PRN 01/13/14 01/24/17 History Digoxin [Lanoxin] 125 mcg PO DAILY 01/13/14 01/24/17 History Omeprazole 40 mg PO DAILY PRN 01/13/14 01/24/17 History Triamterene-Hctz 37.5-25Mg 1 tab PO QAM 01/13/14 01/24/17 History [Maxzide-25] amLODIPine [Norvasc] 5 mg PO DAILY 01/13/14 01/24/17 History metFORMIN HCL [Glucophage] 500 mg PO BID 01/13/14 01/24/17 History Allopurinol [Zyloprim] 100 mg PO DAILY 01/24/17 01/24/17 History Benazepril HCl 10 mg PO HS 01/24/17 01/24/17 History Meclizine [Antivert] 12.5 mg PO TID PRN 01/24/17 01/24/17 History Naproxen 500 mg PO Q12H PRN 01/24/17 01/24/17 History Rosuvastatin [Crestor] 10 mg PO HS 01/24/17 01/24/17 History Allergies Allergy/AdvReac Type Severity Reaction Status Date / Time No Known Allergies Allergy Verified 01/24/17 21:48 Physical Exam Vitals: Vital Signs Temp Pulse Resp BP Pulse Ox 01/26/17 00:30 98.2 F 60 16 143/80 100 01/25/17 20:00 97.5 F L 52 L 13 123/80 98 01/25/17 14:22 97.1 F L 75 16 154/88 95 01/25/17 11:12 98.0 F 74 16 165/99 98 Intake and Output 01/25/17 01/26/17 01/26/17 22:59 06:59 14:59 Intake Total 180 Output Total 150 250 Balance 30 -250 Intake: Oral 180 Output: Gastric Drainage 150 250 Other: # Voids 3 3 GENERAL: This is a 66-year-old -Bangl[place]hi female in no apparent distress at the time of my examination. Morbid obesity. HEENT: Head is atraumatic, normocephalic. Pupils are equal, round. Sclerae anicteric. Conjunctivae are clear. Mucous membranes of the mouth are moist. Neck is supple. There is no jugular venous distention. No carotid bruit is heard. Nasogastric tube in place. LUNGS: Clear to auscultation no wheezes, rales or rhonchi. No chest wall tenderness is noted on palpation or with deep breathing. HEART: Irregular rate and rhythm with systolic ejection murmur auscultated throughout precordium, no rubs or gallops. S1 and S2 heard. ABDOMEN: Soft, nontender. No organomegaly noted. EXTREMITIES: 2+ peripheral pulses with no evidence of peripheral edema and no calf tenderness noted. Obese. NEUROLOGIC: Patient is awake, alert and oriented x3. Results 01/24/17 22:20 01/24/17 22:20 Coagulation 01/25/17 Range/Units 11:45 PT 11.0 (9.0-12.0) sec Current Medications Generic Name Dose Route Start Last Admin Trade Name Freq PRN Reason Stop Dose Admin Allopurinol 100 mg 01/25/17 09:00 01/25/17 11:26 Zyloprim PO 100 mg DAILY [facility] Administration Amlodipine Besylate 5 mg 01/25/17 09:00 01/25/17 11:26 Norvasc PO 5 mg DAILY [facility] Administration Atenolol 12.5 mg 01/25/17 12:45 01/26/17 08:08 Tenormin PO Not Given DAILY [facility] Atorvastatin Calcium 20 mg 01/25/17 21:00 01/25/17 20:33 Lipitor PO 20 mg HS [facility] Administration Cyclobenzaprine HCl 10 mg 01/25/17 01:50 Flexeril PO DAILY PRN Spasms Digoxin 125 mcg 01/25/17 09:00 01/25/17 11:26 Lanoxin PO 125 mcg DAILY [facility] Administration Heparin Sodium (Porcine) 5,000 unit 01/25/17 16:00 01/26/17 01:03 Heparin SQ 5,000 unit Q8HR [facility] Administration Hydralazine HCl 10 mg 01/25/17 01:46 Apresoline IVP Q6HR PRN SBP>160 Sodium Chloride 1,000 mls @ 125 mls/hr 01/24/17 23:30 01/25/17 17:04 Saline 0.9% IV 125 mls/hr .Q8H [facility] Administration Lisinopril 10 mg 01/25/17 21:00 01/25/17 20:33 Zestril PO Not Given HS [facility] Meclizine HCl 12.5 mg 01/25/17 01:50 Antivert PO TID PRN Vertigo Miscellaneous Information 1 each 01/24/17 23:26 Rx Info: Iv Contrast Was Given MISCELLANE 01/26/17 23:26 DAILY PRN Per Protocol Morphine Sulfate 1 mg 01/25/17 12:45 Morphine Sulfate (Inj) IV Q4HR PRN Severe Pain Naloxone HCl 0.2 mg 01/24/17 23:21 Narcan IV Q2M PRN Opioid Reversal Ondansetron HCl 4 mg 01/25/17 12:46 01/25/17 14:06 Zofran IVP 4 mg Q4H PRN Administration Nausea And Vomiting Pantoprazole Sodium 40 mg 01/25/17 09:00 01/25/17 11:26 Protonix IV 40 mg DAILY [facility] Administration Intake and Output 01/25/17 01/26/17 01/26/17 22:59 06:59 14:59 Intake Total 180 Output Total 150 250 Balance 30 -250 Intake: Oral 180 Output: Gastric Drainage 150 250 Other: # Voids 3 3 01/24/17 22:20 01/24/17 22:20 EKG Interpretations (text) EKG indicates atrial fibrillation with a controlled ventricular response heart rate 87. Assessment and Plan Plan: ASSESSMENT 1. Chronic persistent atrial fibrillation not on anticoagulation 2. Essential hypertension 3. Diabetes mellitus 4. Small bowel obstruction 5. Morbid obesity PLAN We have again recommended that the patient go on long-term anticoagulation, her chads-vasc score is 4. We have reiterated the risk of stroke secondary to her atrial fibrillation. She is adamant she does not want to go on any sort of anticoagulation at this time. She also has aortic sclerosis which again places her at high risk. At this time I would recommend the very least she take aspirin Clarita 25 mg by mouth daily. This can be started once it is determined whether or not she is going to have surgery. He kindly for this consultation is a free to call us if you've any further questions or concerns. Nurse Practitioner note has been reviewed, I agree with a documented findings and plan of care. Patient was seen and examined.
[2017-01-26 12:20] LABS: Glucose,Whole Blood 103 mg/dL (75-99)
--- NOTE | 2017-01-26 16:15 | P.PN ---
Progress Note - Text DATE OF SERVICE: 01/26/2017 PRESENTING COMPLAINT: Abdominal pain HISTORY OF PRESENT ILLNESS: 66-year-old female presented with 2 days of increasing abdominal pain nausea and vomiting. Had a bowel movement on 01/23/2017. Diagnostic imaging revealed high-grade small bowel obstruction. NG tube placed. INTERVAL HISTORY: 01/26/2017: Patient sitting up in the recliner, appears comfortable. NG tube in place clamped currently for medication administration. Remains nothing by mouth, Passing gas, states her abdominal pain is better today.Ambulatory with assistance. REVIEW OF SYSTEMS: Done for constitutional ,cardiovascular, GI, pulmonary with relevant findings as above. CURRENT MEDICATIONS Zyloprim 100 mg by mouth daily, Norvasc 5 mg by mouth daily, Lipitor 20 mg by mouth at bedtime, Flexeril 10 mg by mouth daily, Lanoxin 125 g by mouth daily Apresoline 10 mg IV push every 6 hours when necessary for systolic blood pressure greater than 160. Antivert will 0.5 mg by mouth 3 times a day, Protonix 40 mg IV daily, 0.9% normal saline thousand milliliters at 125 mL an hour PHYSICAL EXAM VITAL SIGNS: Temperature 97.5, pulse 59, respiratory rate 16, blood pressure 130/60, oxygen saturation 100% on room air. GENERAL APPEARANCE: Sitting up in the recliner, not in distress. HEENT: Oral cavity normal with NG tube in place in the left nares EYES: Pupils equal. Conjunctiva normal. NECK: JVD not raised. Mass not palpable. RESPIRATORY: Trachea effort normal . Fair air entry CARDIOVASCULAR: Irregular rhythm. No edema. ABDOMEN: Soft. Liver and spleen not palpable. No tenderness. No mass palpable. PSYCHIATRY: Alert and oriented x3. Mood and affect normal. INVESTIGATIONS: None new Abdominal x-ray: Persistent small bowel loop dilatation consistent with small bowel obstruction. Echocardiogram: Atrial fibrillation, left atrium severely dilated greater than 40 mL/m, EF between 55 - 60% ASSESSMENT: -Acute small bowel obstruction, present on admission. -Primary atrial fibrillation, rate controlled, patient has not chosen to be on anticoagulation, on an aspirin only -Diabetes mellitus type 2 on oral hypoglycemics. -Gastro-soft to reflux disease. -Essential hypertension. -Obstructive sleep apnea uses CPAP machine. -Obesity body mass index 39.1. PLAN: Continue IV fluids, nasogastric tube to low intermittent suction, abdominal x- ray to be reevaluated later on and if improvement NG tube will be clamped for removal later. Diet to be ordered and advanced per surgical preference based on patient response to current interventions. Plan of care discussed with the patient the bedside. We'll continue to follow closely. REVENUE TAX SPECIALIST statement: Patient was seen and examined by nurse practitioner Jeane Griffiths and all elements of the case discussed with attending Dr. Syed
--- NOTE | 2017-01-26 18:24 | PN ---
PROGRESS NOTE DATE OF SERVICE: 01/26/2017 ATTENDING NOTE: This patient seen examined by me. I discussed with my nurse practitioner, Ms. Griffiths. This patient admitted with high-grade small-bowel obstruction. NG tube in place. Nausea, vomiting not present. Abdominal pain is greatly improved. The patient did pass flatus. EXAMINATION: Afebrile. Blood pressure 130/60. ABDOMEN: Soft, nontender. Bowel sounds are present. INVESTIGATIONS: Accu-Cheks are noted. Abdominal x-ray did show small-bowel loop dilatation still present. ASSESSMENT: Acute small-bowel obstruction. Patient with clinical improvement, though radiologically still some is present. At this point, continue with IV fluids. Nasogastric tube remains in place. Will see how the patient does. Clinically, the patient seems to have done better. Care was discussed with the patient. Follow. HERMINIAL / IJN: [id number] /
--- NOTE | 2017-01-26 18:29 | P.PN ---
Progress Note - Text Patient seen and evaluated. She reports passing flatus and having a bowel movement. She wants an enema. The results of her abdominal x-ray were reviewed in detail. As the patient is clinically improving, we'll do trial of clears. Nasogastric tube to be discontinued after clears for breakfast. Should she tolerate, may advance diet with potential discharge home.
[2017-01-26] MEDS: LISINOPRIL 10 MG TAB PO SCH (20:00)
[2017-01-26] MEDS: ATORVASTATIN 20 MG TAB PO SCH (20:00)
[2017-01-26 23:57] LABS: Glucose,Whole Blood 121 mg/dL (75-99)
[2017-01-27] MEDS: HEPARIN SODIUM,PORCINE 5,000 UNIT/ML 1 ML VIAL SQ SCH ×3 (00:59→17:23)
[2017-01-27] MEDS: SODIUM CHLORIDE 0.9% 1,000 ML IV SCH ×2 (05:19→10:32)
[2017-01-27 08:33] LABS: Anisocytosis Slight; Basophils % (A) 0 %; CH 28.4; Eosinophils # (A) 0.1 k/uL (0-0.7); Eosinophils % (A) 1 %; HCT 43.3 % (34.0-46.0); HDW 2.74; Large Platelets Flag Slight; Luc # (Auto) 0.12; Luc % (Auto) 1; Lymphocytes # (A) 1.8 k/uL (1.0-4.8); Lymphocytes % (A) 18 %; MCHC 31.3 g/dL (31.0-37.0); MCV 89.3 fL (80.0-100.0); Mean Platelet Volume 11.3; Monocytes # (A) 0.6 k/uL (0-1.0); Monocytes % (A) 6 %; Neutrophils # (A) 7.3 k/uL (1.3-7.7); Neutrophils % (A) 73 %; RBC 4.85 m/uL (3.80-5.40); RDW 16.8 % (11.5-15.5); WBC (Perox) 10.08
[2017-01-27 08:36] LABS: HGB 13.6 gm/dL (11.4-16.0)
[2017-01-27 08:40] LABS: ALT 30 U/L (9-52); AST 23 U/L (14-36); Alkaline Phosphatase 86 U/L (38-126); Anion Gap 10 mmol/L; Blood Urea Nitrogen 7 mg/dL (7-17); Calcium 9.1 mg/dL (8.4-10.2); Carbon Dioxide 29 mmol/L (22-30); Chloride 99 mmol/L (98-107); Glucose 133 mg/dL (74-99); Non-African American GFR(MDRD) >60 (>60 ml/min/1.73 sqM); Potassium 3.4 mmol/L (3.5-5.1); Sodium 138 mmol/L (137-145); Total Bilirubin 2.1 mg/dL (0.2-1.3); Total Protein 6.7 g/dL (6.3-8.2)
--- NOTE | 2017-01-27 09:06 | P.PN ---
Subjective 66-year-old female being seen on rounds this morning nasal gastric tube is clamped. Patient states tolerating clear liquid. Patient states anxious to have diet advanced. Patient states passing gas did have a bowel movement this morning. Patient states she's been up ambulating in the hallway patient states has no abdominal pain "it's gone now" abdomen is soft nondistended with bowel tones present Objective - Vital Signs Vital signs: Vital Signs Temp 98.1 F 01/27/17 00:20 Pulse 72 01/27/17 00:20 Resp 16 01/27/17 00:20 BP 149/83 01/27/17 00:20 Pulse Ox 98 01/27/17 00:20 Intake & Output 01/26/17 01/27/17 01/27/17 18:59 06:59 18:59 Intake Total 1000 1500 Output Total 700 Balance 300 1500 Weight 106.59 kg Intake: IV 1000 1500 Sodium Chloride 0.9% 1, 1000 1500 000 ml @ 125 mls/hr IV . Q8H [facility] Rx#:[id number] Output: Gastric Drainage 700 - Exam Physical exam 66-year-old female resting comfortably in bed states abdominal pain gone appears in no acute distress lungs essentially clear adequate air movement bilaterally on room air Heart S1-S2 audible irregular abdomen soft not distended obese not tender bowel tones present tolerating clear liquid diet extremities no edema noted - Labs CBC & Chem 7: 01/27/17 07:39 01/24/17 22:20 Labs: Abnormal Lab Results - Last 24 Hours (Table) 01/26/17 01/26/17 01/27/17 Range/Units 12:18 23:54 07:39 RDW 16.8 H (11.5-15.5) % Plt Count 135 L (150-450) k/uL POC Glucose (mg/dL) 103 H 121 H (75-99) mg/dL Assessment and Plan Plan: Impression Present on admission nausea vomiting right lower quadrant pain radiating to the epigastric area suspect due to an early small bowel obstruction Type 2 diabetes non-insulin hemoglobin A1c 6.2 Obesity BMI 39 Hypertension essential Present on admission atrial fibrillation per 12-lead EKG unable to determine new onset or chronic on no anticoagulation except aspirin Elevated hemoglobin of 16 Echocardiogram January 26 left ventricular systolic function normal EF 55-60% Hypokalemia Plan Hep-Lock IV Advance diet if tolerated probable discharge today pain control DVT and GI prophylaxis Potassium replaced The above impression and plan of care have been discussed and directed by signing physician. Yoanna Acuna nurse practitioner acting as scribe for signing physician.
[2017-01-27] MEDS: DIGOXIN 125 MCG TAB PO SCH (09:14)
[2017-01-27] MEDS: ATENOLOL 25 MG TAB PO SCH (09:14)
[2017-01-27] MEDS: amLODIPine 5 MG TAB PO SCH (09:14)
[2017-01-27] MEDS: ALLOPURINOL 100 MG TAB PO SCH (09:14)
[2017-01-27 09:34] LABS: Glucose,Whole Blood 112 mg/dL (75-99)
[2017-01-27] MEDS: FAMOTIDINE 20 MG TAB PO SCH ×2 (10:16→21:28)
[2017-01-27] MEDS: POTASSIUM CHLORIDE ER 20 MEQ TAB.ER PO SCH ×2 (10:17→13:19)
[2017-01-27] MEDS: PANTOPRAZOLE 40 MG/10 ML VIAL IV SCH (10:33)
--- NOTE | 2017-01-27 14:40 | P.PN ---
Progress Note - Text DATE OF SERVICE: 01/27/2017 PRESENTING COMPLAINT: Abdominal pain HISTORY OF PRESENT ILLNESS: 66-year-old female presented with 2 days of increasing abdominal pain nausea and vomiting. Had a bowel movement on 01/23/2017. Diagnostic imaging revealed high-grade small bowel obstruction. NG tube placed, small bowel obstruction resolving, NG tube removed per surgery. INTERVAL HISTORY: 01/27/2017: Lying in bed, appears comfortable, NG tube removed. Had a BM yesterday evening. Diet advanced to clear liquids patient's tolerating this well. Abdominal pain is all but resolved. Ambulatory to and from the bathroom independently, tolerating her clear liquid diet, last BM 01/26/2017. 01/26/2017: Patient sitting up in the recliner, appears comfortable. NG tube in place clamped currently for medication administration. Remains nothing by mouth, Passing gas, states her abdominal pain is better today.Ambulatory with assistance. REVIEW OF SYSTEMS: Done for constitutional ,cardiovascular, GI, pulmonary with relevant findings as above. CURRENT MEDICATIONS Zyloprim 100 mg by mouth daily, Norvasc 5 mg by mouth daily, Lipitor 20 mg by mouth at bedtime, Flexeril 10 mg by mouth daily, Lanoxin 125 g by mouth daily Apresoline 10 mg IV push every 6 hours when necessary for systolic blood pressure greater than 160. Antivert will 0.5 mg by mouth 3 times a day, Protonix 40 mg IV daily, 0.9% normal saline thousand milliliters at 125 mL an hour PHYSICAL EXAM VITAL SIGNS: Temperature 97.5, pulse 59, respiratory rate 16, blood pressure 130/60, oxygen saturation 100% on room air. GENERAL APPEARANCE: Lying in bed, appears comfortable. HEENT: Oral cavity normal EYES : Pupils equal. Conjunctiva normal. NECK: JVD not raised. Mass not palpable. RESPIRATORY: effort normal . Fair air entry CARDIOVASCULAR: Irregular rhythm. No edema. ABDOMEN: Soft. Liver and spleen not palpable. No tenderness. No mass palpable. PSYCHIATRY: Alert and oriented x3. Mood and affect normal. INVESTIGATIONS: Potassium 3.4. Abdominal x-ray: Persistent small bowel loop dilatation consistent with small bowel obstruction. Echocardiogram: Atrial fibrillation, left atrium severely dilated greater than 40 mL/m, EF between 55 - 60% ASSESSMENT: -Acute small bowel obstruction, present on admission on the improving -Primary atrial fibrillation, rate controlled, patient has not chosen to be on anticoagulation, on an aspirin only -Diabetes mellitus type 2 on oral hypoglycemics. -Gastro-soft to reflux disease. -Essential hypertension. -Obstructive sleep apnea uses CPAP machine. -Obesity body mass index 39.1. PLAN: Patient had a bowel movement 01/26/2017, NG tube removed, trialing clear liquids patient's tolerating well. We'll likely discharge home later today or tomorrow. Plan of care discussed with the patient the bedside and she is in agreement. SCALE MODEL MAKER statement: Patient was seen and examined by nurse practitioner Jeane Griffiths and all elements of the case discussed with attending Dr. Syed
--- NOTE | 2017-01-27 14:54 | XR ---
EXAMINATION TYPE: XR abdomen 2V DATE OF EXAM: 01/27/2017 COMPARISON: 01/26/2070 INDICATION: Small bowel obstruction TECHNIQUE: Single view abdomen upright view. Exam is supplemented with a supine view. FINDINGS: There are dilated small bowel loops which are increasing in prominence from the comparison study. Tra nsverse dimension is approximately 5.1 cm compared to 3.7 cm previously. Differential air-fluid level s are evident within the small bowel loops dilated in the midabdomen. There is some small amount of c olonic bowel gas present suggesting partial obstruction. No free air is identified. Psoas margins are normal. No organomegaly is present. No suspicious calcifications are evident. Phleboliths within the pelvis. IMPRESSION: 1. Suggestion of worsening partial small bowel obstruction midabdomen.
--- NOTE | 2017-01-27 15:44 | P.PN ---
<Yoanna Acuna - Last Filed: 01/27/17 15:43> Subjective 66-year-old female being seen patient is sitting up on the edge of the bed. Patient states she has been up ambulating in the hallway. The diet was advanced to a full liquid this afternoon. Nasogastric tube was removed earlier this morning. Patient initially started on clear liquid. This was advanced to full liquid. Patient states when she tries to take something even small amount of the diet develops mid lower abdominal pain described as a "dull ache feeling in the stomach patient points to the lower abdomen as to the reference point the pain is. Dr. Sales at the bedside did discuss with the patient treatment option which is to proceed with surgery to address the small bowel obstruction x-rays obtained this afternoon show worsening of the partial small bowel mid abdominal . Also reinforced to the patient this would be done tomorrow patient was able to verbalize understanding of the treatment plan no family at the Objective - Vital Signs Vital signs: Vital Signs Temp 98.1 F 01/27/17 15:06 Pulse 97 01/27/17 15:06 Resp 16 01/27/17 07:00 BP 143/72 01/27/17 15:06 Pulse Ox 98 01/27/17 15:06 Intake & Output 01/26/17 01/27/17 01/27/17 18:59 06:59 18:59 Intake Total 1000 1500 Output Total 700 Balance 300 1500 Weight 106.59 kg 106.59 kg Intake: IV 1000 1500 Sodium Chloride 0.9% 1, 1000 1500 000 ml @ 125 mls/hr IV . Q8H [facility] Rx#:[id number] Output: Gastric Drainage 700 - Exam Physical exam 66-year-old female resting comfortably in bed appears in no acute distress lungs essentially clear adequate air movement bilaterally on room air Heart S1-S2 audible irregular abdomen soft not distended obese not tender bowel tones present states no stool after having an enema given last night states urinating with no difficulty reports a dull mid lower abdominal discomfort after eating extremities no edema noted - Labs CBC & Chem 7: 01/27/17 07:39 01/27/17 07:39 Labs: Abnormal Lab Results - Last 24 Hours (Table) 01/26/17 01/27/17 01/27/17 Range/Units 23:54 06:02 07:39 RDW 16.8 H (11.5-15.5) % Plt Count 135 L (150-450) k/uL Potassium (3.5-5.1) mmol/L Glucose (74-99) mg/dL POC Glucose (mg/dL) 121 H 112 H (75-99) mg/dL Total Bilirubin (0.2-1.3) mg/dL 01/27/17 Range/Units 07:39 RDW (11.5-15.5) % Plt Count (150-450) k/uL Potassium 3.4 L (3.5-5.1) mmol/L Glucose 133 H (74-99) mg/dL POC Glucose (mg/dL) (75-99) mg/dL Total Bilirubin 2.1 H (0.2-1.3) mg/dL Assessment and Plan Plan: Impression Present on admission nausea vomiting right lower quadrant pain radiating to the epigastric area suspect due to an early small bowel obstruction Type 2 diabetes non-insulin hemoglobin A1c 6.2 Obesity BMI 39 Hypertension essential Present on admission atrial fibrillation per 12-lead EKG unable to determine new onset or chronic on no anticoagulation except aspirin Elevated hemoglobin of 16 Echocardiogram January 26 left ventricular systolic function normal EF 55-60% Hypokalemia Plan keep nothing by mouth in anticipation of surgery tomorrow pain control DVT and GI prophylaxis Potassium replaced Repeat labs in the morning Scheduled for surgery in the a.m. per Dr. Ortiz IV fluid for hydration The above impression and plan of care have been discussed and directed by signing physician. Yoanna Acuna nurse practitioner acting as scribe for signing physician. <Carli Sales N - Last Filed: 01/27/17 21:39> Objective - Vital Signs Vital signs: Vital Signs Temp 98.2 F 01/27/17 21:24 Pulse 86 01/27/17 21:24 Resp 17 01/27/17 21:24 BP 147/81 01/27/17 21:24 Pulse Ox 97 01/27/17 21:24 Intake & Output 01/27/17 01/27/17 01/28/17 06:59 18:59 06:59 Intake Total 1500 250 Balance 1500 250 Weight 106.59 kg Intake: IV 1500 250 Sodium Chloride 0.9% 1, 1500 250 000 ml @ 125 mls/hr IV . Q8H [facility] Rx#:[id number] - Exam GENERAL: Well developed and in no acute distress. Pleasant. HEENT: No sclera icterus. Extraocular movements grossly intact. Moist buccal mucosa. Head is atraumatic, normocephalic. Hears conversational speech. No nasal drainage. NECK: Supple without lymphadenopathy. CHEST: Non-labored respirations and equal bilateral excursions. CARDIOVASCULAR: Irregular rate and rhythm. Palpable 2+ radial pulses. ABDOMEN: Soft, tender along the left lower quadrant. No rebound or guarding. MUSCULOSKELETAL: No clubbing, cyanosis or edema. NEUROLOGIC: No focal or lateralizing signs. PSYCH: Appropriate affect. Alert and oriented to person, place and time. SKIN: Good skin turgor. Well perfused. - Labs CBC & Chem 7: 01/27/17 07:39 01/27/17 15:57 Labs: Abnormal Lab Results - Last 24 Hours (Table) 01/26/17 01/27/17 01/27/17 Range/Units 23:54 06:02 07:39 RDW 16.8 H (11.5-15.5) % Plt Count 135 L (150-450) k/uL Potassium (3.5-5.1) mmol/L Glucose (74-99) mg/dL POC Glucose (mg/dL) 121 H 112 H (75-99) mg/dL Total Bilirubin (0.2-1.3) mg/dL 01/27/17 01/27/17 01/27/17 Range/Units 07:39 15:57 18:12 RDW (11.5-15.5) % Plt Count (150-450) k/uL Potassium 3.4 L (3.5-5.1) mmol/L Glucose 133 H 166 H (74-99) mg/dL POC Glucose (mg/dL) 114 H (75-99) mg/dL Total Bilirubin 2.1 H (0.2-1.3) mg/dL Assessment and Plan Plan: I had a long discussion with the patient as despite conservative measures, she had rebound and had worsen her bowel obstruction. As a result immediate surgical intervention is revised. Benefits and risks of exploratory laparotomy with possible small bowel resection was described in detail. Patient is scheduled for surgery tomorrow.
[2017-01-27 16:28] LABS: Anion Gap 9 mmol/L; Blood Urea Nitrogen 8 mg/dL (7-17); Calcium 9.4 mg/dL (8.4-10.2); Carbon Dioxide 30 mmol/L (22-30); Chloride 100 mmol/L (98-107); Glucose 166 mg/dL (74-99); Non-African American GFR(MDRD) >60 (>60 ml/min/1.73 sqM); Potassium 3.7 mmol/L (3.5-5.1); Sodium 139 mmol/L (137-145)
[2017-01-27 18:19] LABS: Glucose,Whole Blood 114 mg/dL (75-99)
[2017-01-27] MEDS: LISINOPRIL 10 MG TAB PO SCH (20:53)
[2017-01-27] MEDS: ATORVASTATIN 20 MG TAB PO SCH (20:53)
--- NOTE | 2017-01-27 23:22 | PN ---
PROGRESS NOTE DATE OF SERVICE: 01/27/2017 ATTENDING NOTE: This patient was seen and examined by me. I discussed with my nurse practitioner, Ms. Griffiths. Patient admitted with small-bowel obstruction. X-ray does not show significant improvement, though NG tube was taken out today. Dr. Sales is planning to take the patient to surgery. EXAMINATION: ABDOMEN: Soft. Bowel sounds are present. PSYCH: AO x3. INVESTIGATIONS: White count 10. Potassium 3.4. Abdominal x-ray: Worsening partial small-bowel obstruction. ASSESSMENT: Worsening partial small-bowel obstruction. The patient is being made n.p.o. to possibly proceed with surgery. IV fluids are to continue. Care was discussed with the patient. The patient will be made n.p.o. after midnight. MMODL / IJN: [id number] /
[2017-01-27 23:50] LABS: Glucose,Whole Blood 91 mg/dL (75-99)
[2017-01-28] MEDS: MORPHINE SULFATE 2 MG/ML SYRINGE IVP PRN ×2 (05:50→07:58)
[2017-01-28 05:54] LABS: Glucose,Whole Blood 102 mg/dL (75-99)
[2017-01-28 07:46] LABS: Basophils % (A) 0 %; CH 27.5; CHCM 30.8; Eosinophils # (A) 0.1 k/uL (0-0.7); Eosinophils % (A) 1 %; HCT 41.7 % (34.0-46.0); HDW 2.68; HGB 13.2 gm/dL (11.4-16.0); Hypochromasia Moderate; Large Platelets Flag Marked; Luc # (Auto) 0.13; Luc % (Auto) 1; Lymphocytes # (A) 1.3 k/uL (1.0-4.8); Lymphocytes % (A) 12 %; MCH 28.4 pg (25.0-35.0); MCHC 31.6 g/dL (31.0-37.0); MCV 89.7 fL (80.0-100.0); Mean Platelet Volume 12.4; Monocytes # (A) 0.6 k/uL (0-1.0); Monocytes % (A) 5 %; Neutrophils % (A) 81 %; RBC 4.65 m/uL (3.80-5.40); RDW 15.9 % (11.5-15.5); WBC 11.1 k/uL (3.8-10.6)
[2017-01-28 07:55] LABS: ALT 29 U/L (9-52); AST 25 U/L (14-36); Alkaline Phosphatase 76 U/L (38-126); Anion Gap 13 mmol/L; Blood Urea Nitrogen 9 mg/dL (7-17); Calcium 9.3 mg/dL (8.4-10.2); Carbon Dioxide 24 mmol/L (22-30); Chloride 102 mmol/L (98-107); Glucose 105 mg/dL (74-99); Non-African American GFR(MDRD) >60 (>60 ml/min/1.73 sqM); Potassium 3.5 mmol/L (3.5-5.1); Sodium 139 mmol/L (137-145); Total Bilirubin 2.2 mg/dL (0.2-1.3); Total Protein 6.8 g/dL (6.3-8.2)
[2017-01-28] MEDS: ATENOLOL 25 MG TAB PO SCH (07:55)
[2017-01-28] MEDS: DIGOXIN 125 MCG TAB PO SCH (07:55)
--- NOTE | 2017-01-28 08:06 | P.HPADDEND ---
H&P Addendum H&P Addendum Date: 01/28/17 Patient has no improvement of her bowel obstruction. Benefits and risks of surgery have been explained. We'll proceed with exploratory laparotomy possible bowel resection.
[2017-01-28] MEDS ORDERED: IV FLUID CONTINUATION 1,000 ML IV ONE (11:42)
[2017-01-28] MEDS ORDERED: NALOXONE 0.4 MG/ML 1 ML VIAL IV PRN (12:20)
[2017-01-28] MEDS: amLODIPine 5 MG TAB PO SCH (12:21)
[2017-01-28] MEDS: HEPARIN SODIUM,PORCINE 5,000 UNIT/ML 1 ML VIAL SQ SCH ×3 (12:21→16:22)
[2017-01-28] MEDS: FAMOTIDINE 20 MG TAB PO SCH (12:21)
[2017-01-28] MEDS: ALLOPURINOL 100 MG TAB PO SCH (12:21)
[2017-01-28] MEDS ORDERED: ceFAZolin 2 GM in SODIUM CHLORIDE 0.9% 100 ML IVPB STA (12:28)
[2017-01-28] MEDS ORDERED: ONDANSETRON 4 MG/2 ML VIAL ONE (12:45)
[2017-01-28] MEDS ORDERED: DEXAMETHASONE SOD PHOS (MDV) 100 MG/10 ML VIAL ONE (12:45)
[2017-01-28] MEDS ORDERED: MIDAZOLAM 2 MG/2 ML VIAL ONE (12:45)
[2017-01-28] MEDS ORDERED: SUCCINYLCHOLINE CHLORIDE VIAL 200 MG/10 ML VIAL IV ONE (12:45)
[2017-01-28] MEDS ORDERED: fentaNYL (PF) 50 MCG/ML 2 ML AMP ONE (12:45)
[2017-01-28] MEDS ORDERED: GLYCOPYRROLATE 0.2 MG/ML 2 ML VIAL ONE (12:45)
[2017-01-28] MEDS ORDERED: PROPOFOL 10 MG/ML 20 ML VIAL IV ONE (12:45)
[2017-01-28] MEDS ORDERED: NEOSTIGMINE 1 MG/ML 10 ML VIAL ONE (12:45)
[2017-01-28] MEDS ORDERED: LIDOCAINE 1% INJ 10MG/ML (20 ML MDV) ONE (12:45)
[2017-01-28] MEDS ORDERED: VECURONIUM 10 MG VIAL IV ONE (12:45)
[2017-01-28] MEDS ORDERED: LACTATED RINGERS 1,000 ML IV ONE ×2 (13:19)
[2017-01-28] MEDS ORDERED: SODIUM CHLORIDE 0.9% 100 ML with ceFAZolin 2,000 MG IV ONE ×2 (13:24)
[2017-01-28] MEDS ORDERED: CELLULOSE,OXIDIZED 1 EACH EACH MISCELLANE ONE (13:56)
[2017-01-28] MEDS: BUPIVACAINE (PF) 0.5% 50 ML, HYDROMORPHONE (PF) 5 MG in SODIUM CHLORIDE 0.9% 200 ML EPIDURAL PRN ×4 (14:28→15:26)
[2017-01-28 14:45] LABS: Glucose,Whole Blood 108 mg/dL (75-99)
--- NOTE | 2017-01-28 14:59 | P.OP ---
Date of Procedure: 01/28/17 Description of Procedure: SURGEON: CARLOS SHORE MD BIAS CUTTER HELPER: NONE. PREOPERATIVE DIAGNOSIS: 1. Complete small bowel obstruction. 2. History of accelerated hypertension. 3. Hypertensive heart disease. 4. Prior history of abdominal surgeries with intestinal adhesions. 5. Congestive heart failure, chronic diastolic. 6. Gastroesophageal reflux disease. 7. Insulin dependent type 2 diabetes, controlled. 8. Hyperlipidemia. 9. History of gout. 10. Morbid obesity due to excess calories. 11. Body mass index 39.1. 12. Chronic atrial fibrillation. POSTOPERATIVE DIAGNOSIS: 1. Complete small bowel obstruction. 2. History of accelerated hypertension. 3. Hypertensive heart disease. 4. Prior history of abdominal surgeries with intestinal adhesions. 5. Congestive heart failure, chronic diastolic. 6. Gastroesophageal reflux disease. 7. Insulin dependent type 2 diabetes, controlled. 8. Hyperlipidemia. 9. History of gout. 10. Morbid obesity due to excess calories. 11. Body mass index 39.1. 12. Chronic atrial fibrillation. 13. Peritoneal adhesions, epigastric and left lower quadrant. OPERATION: 1. Open exploratory laparotomy with lysis of adhesions greater omentum to abdominal wall. 2. Lysis of adhesions of interloop small bowel. ANESTHESIA: General with epidural. ESTIMATED BLOOD LOSS: 25 cc. SPECIMENS REMOVED: None. CONDITION: Stable. DISPOSITION: To the Floor. COMPLICATIONS: None. OPERATIVE FINDINGS: 1. Large adhesive band from her abdominal wall involving jejunum creating a closed loop obstruction at the right upper quadrant. 2. Multiple interloop small bowel adhesions involving the pelvis and mid to distal jejunum also completely lysed. INDICATIONS: The patient is a 66-year-old female who presents with small bowel obstructions evident CT of the abdomen and pelvis. Despite conservative measures, her symptoms progressed to complete small bowel obstruction. Surgical intervention with exploratory laparotomy including lysis of adhesions possible bowel resection were described. Benefits and risks of the procedures were discussed. Informed consent was obtained. DESCRIPTION: The patient was brought to the operating room. An epidural was placed per anesthesia. After general induction, a Dixon catheter was placed. The abdomen was prepped and draped in standard sterile fashion. Ioban draping was also placed. Prior to incision, a timeout protocol was confirmed with surgical team regarding patient's name including procedures to be performed. Preoperative medications were confirmed. Attention was brought to the abdomen whereby a well healed lower midline incision was encountered. Next, a #10 blade was used to enter along the epigastrium and extended down to the pubis. Carefully the abdomen was entered using electro- Bovie cautery. The small bowel was grossly dilated. Along the left lower quadrant and pelvis, adhesive bands involving the anterior abdominal wall and small bowel were sharply lysed using electro-Bovie cautery including Metzenbaum scissors. Multiple interloop adhesions involving the mid to distal jejunum was sharply lysed with Metzenbaum scissors as well. A final very tight adhesive band causing the small bowel obstruction was identified of the epigastric and right upper quadrant. The small bowel wall was chronically thickened confirming a persistent and chronic bowel obstruction. Immediately the band was released and the obstruction was decompressed. The small bowel was inspected from distal to proximal, starting from the ileocecal valve. From distal to proximal, the small bowel was investigated up to the ligament of Treitz whereby no eatures of internal hernia was identified. No features of small bowel volvulus was found. No small bowel pathology or tumors were palpated. The stomach was palpated whereby the nasogastric tube was advanced to the midportion of the stomach and secured. Adhesions were confirmed about the superior pole of stomach from her previous adjustable gastric band. The abdomen was copiously irrigated with 1.5 L of warm normal saline solution. No contamination had occurred throughout the case. The abdomen was inspected for hemostasis and closed using 2 sutures of double- stranded 0 PDS from inferiorly and superiorly. The incision around the umbilicus was reapproximated using 3-0 Vicryl in an interrupted subcuticular fashion including the rest of the incision was reapproximated in a similar fashion. The skin was cleansed and the Ioban draping was removed. An Optifoam surgical dressing was placed along the midline. At the end of the procedure, needle, sponge, and instrument count had been verified correct by the surgical dental assistant. The patient will be sent to the postanesthesia care unit in stable condition. Intraoperative findings were described to the patient's family who were very pleased with the level of care.
[2017-01-28] MEDS: SODIUM CHLORIDE 0.9% 1,000 ML IV SCH (16:19)
[2017-01-28] MEDS: ceFAZolin 2 GM in SODIUM CHLORIDE 0.9% 100 ML IVPB SCH (16:20)
[2017-01-28 17:00] LABS: Glucose,Whole Blood 131 mg/dL (75-99)
--- NOTE | 2017-01-28 21:25 | PN ---
PROGRESS NOTE DATE OF SERVICE: 01/28/2017. ATTENDING NOTE: This patient was seen and examined by me. I discussed with my nurse practitioner, Ms. Griffiths. The patient went down to the OR today with a small-bowel obstruction. Lysis of adhesions carried out. EXAMINATION: Blood pressure 122/83. Lying in bed. LUNGS: Fair air entry. The patient has a binder on the abdomen with a dressing over the incision site. ASSESSMENT: Small-bowel obstruction leading to lysis of adhesions. Continue the IV fluids, other medication and treatment plan. Diet per Surgery. MMODL / IJN: [id number] /
[2017-01-28] MEDS ORDERED: SODIUM CHLORIDE 0.9% 2,000 ML IV ONE (22:28)
[2017-01-29] MEDS: SODIUM CHLORIDE 0.9% 1,000 ML IV SCH ×3 (00:59→17:54)
[2017-01-29] MEDS: ceFAZolin 2 GM in SODIUM CHLORIDE 0.9% 100 ML IVPB SCH ×2 (00:59→08:03)
[2017-01-29] MEDS: LISINOPRIL 10 MG TAB PO SCH ×2 (00:59→21:01)
[2017-01-29] MEDS: HEPARIN SODIUM,PORCINE 5,000 UNIT/ML 1 ML VIAL SQ SCH ×3 (01:03→17:54)
[2017-01-29 05:06] LABS: Glucose,Whole Blood 109 mg/dL (75-99)
[2017-01-29 07:19] LABS: Basophils % (A) 0 %; CH 27.3; CHCM 29.3; Eosinophils % (A) 0 %; HCT 43.4 % (34.0-46.0); HDW 2.58; HGB 13.3 gm/dL (11.4-16.0); Hypochromasia Marked; Large Platelets Flag Slight; Luc # (Auto) 0.08; Luc % (Auto) 1; Lymphocytes # (A) 0.7 k/uL (1.0-4.8); Lymphocytes % (A) 7 %; MCH 28.6 pg (25.0-35.0); MCHC 30.6 g/dL (31.0-37.0); MCV 93.5 fL (80.0-100.0); Monocytes # (A) 0.6 k/uL (0-1.0); Monocytes % (A) 6 %; Neutrophils # (A) 8.9 k/uL (1.3-7.7); Neutrophils % (A) 86 %; RBC 4.65 m/uL (3.80-5.40); RDW 15.7 % (11.5-15.5); WBC 10.4 k/uL (3.8-10.6); WBC (Perox) 10.28
[2017-01-29 07:34] LABS: Calcium 8.5 mg/dL (8.4-10.2); Magnesium 1.7 mg/dL (1.6-2.3); Phosphorus 6.7 mg/dL (2.5-4.5); Potassium 4.8 mmol/L (3.5-5.1); Total Bilirubin 1.1 mg/dL (0.2-1.3); Total Protein 6.2 g/dL (6.3-8.2)
[2017-01-29] MEDS: amLODIPine 5 MG TAB PO SCH (08:03)
[2017-01-29] MEDS: DIGOXIN 125 MCG TAB PO SCH (08:04)
[2017-01-29] MEDS: ATENOLOL 25 MG TAB PO SCH (08:04)
[2017-01-29] MEDS: PANTOPRAZOLE 40 MG/10 ML VIAL IV SCH (08:04)
[2017-01-29] MEDS ORDERED: SODIUM CHLORIDE 0.9% 1,000 ML IV ONE (08:49)
[2017-01-29 11:56] LABS: Glucose,Whole Blood 107 mg/dL (75-99)
--- NOTE | 2017-01-29 11:59 | P.PN ---
Progress Note - Text 1135 Anesthesia POD 1. Status Post exploratory laparotomy with lysis of adhesions under general endotracheal anesthesia with an epidrual catheter placed at T12 for post surgical pain releif. VAS (0, 2) with Bupivicaine 0.1 % and Dilaudid 20 mcg / cc running at 3 cc / hr. Lower extremity strength (4/4). No sedation. Site looks OK.
--- NOTE | 2017-01-29 16:19 | P.PN ---
Subjective Principal diagnosis: Bowel obstruction The patient is a 58-year-old female postop day 1 status post lysis of adhesions with bowel obstruction. No passage of flatus. No nausea or vomiting. Pain is controlled. Her main complaint includes her left ankle pain that she's had in the past. She has not ambulated as a result. Epidural is present. Objective - Vital Signs Vital signs: Vital Signs Temp 97.2 F L 01/29/17 08:00 Pulse 59 L 01/29/17 07:00 Resp 16 01/29/17 07:00 BP 124/60 01/29/17 07:00 Pulse Ox 98 01/29/17 07:00 Intake & Output 01/28/17 01/29/17 01/29/17 18:59 06:59 18:59 Intake Total 1100 2750 Output Total 275 605 Balance 825 2145 Intake: IV 1100 Intake, IV Titration 2750 Amount Sodium Chloride 0.9% 1, 750 000 ml @ 75 mls/hr IV . [id number] [facility] Rx#:[id number] Sodium Chloride 0.9% 2, 2000 000 ml @ 999 mls/hr IV . Q2H1M [facility] Rx#:[id number] Output: Gastric Drainage 100 350 Urine 150 255 Estimated Blood Loss 25 Other: Voiding Method Indwelling Catheter - Exam GENERAL: Well developed and in no acute distress. Pleasant. HEENT: No sclera icterus. Extraocular movements grossly intact. Moist buccal mucosa. Head is atraumatic, normocephalic. Hears conversational speech. No nasal drainage. CHEST: Non-labored respirations and equal bilateral excursions. CARDIOVASCULAR: Irregular rate and rhythm. Palpable 2+ radial pulses. ABDOMEN: Soft, nondistended. Midline dressing clean dry and intact. Abdominal binder readjusted. MUSCULOSKELETAL: No clubbing, cyanosis or edema. Tender along the left ankle joint space. NEUROLOGIC: No focal or lateralizing signs. PSYCH: Appropriate affect. Alert and oriented to person, place and time. SKIN: Good skin turgor. Well perfused. - Labs CBC & Chem 7: 01/29/17 06:38 01/29/17 06:38 Labs: Abnormal Lab Results - Last 24 Hours (Table) 01/28/17 01/28/17 01/29/17 Range/Units 14:35 16:58 05:04 MCHC (31.0-37.0) g/dL RDW (11.5-15.5) % Plt Count (150-450) k/uL Neutrophils # (1.3-7.7) k/uL Lymphocytes # (1.0-4.8) k/uL BUN (7-17) mg/dL Creatinine (0.52-1.04) mg/dL Glucose (74-99) mg/dL POC Glucose (mg/dL) 108 H 131 H 109 H (75-99) mg/dL Phosphorus (2.5-4.5) mg/dL AST (14-36) U/L Total Protein (6.3-8.2) g/dL 01/29/17 01/29/17 Range/Units 06:38 06:38 MCHC 30.6 L (31.0-37.0) g/dL RDW 15.7 H (11.5-15.5) % Plt Count 132 L (150-450) k/uL Neutrophils # 8.9 H (1.3-7.7) k/uL Lymphocytes # 0.7 L (1.0-4.8) k/uL BUN 22 H (7-17) mg/dL Creatinine 1.28 H (0.52-1.04) mg/dL Glucose 112 H (74-99) mg/dL POC Glucose (mg/dL) (75-99) mg/dL Phosphorus 6.7 H (2.5-4.5) mg/dL AST 41 H (14-36) U/L Total Protein 6.2 L (6.3-8.2) g/dL Assessment and Plan (1) Peritoneal adhesions with obstruction Status: Acute (2) Morbid obesity due to excess calories Status: Acute (3) Morbid obesity with BMI of 40.0-44.9, adult Status: Acute (4) Atrial fibrillation Status: Acute (5) Hyperlipidemia Status: Acute (6) Left ankle pain Status: Acute (7) Osteoarthritis Status: Acute (8) S/P exploratory laparotomy Status: Acute Plan: 1. Recommend removal of epidural tomorrow morning. 2. Hold heparin PM dose for epidural removal. 3. May start Mobic after epidural removal. 4. She has personal history of gout which may also account for acute pain of the left ankle. 5. Physical therapy for ambulation. 6. Discharge pending passage of flatus and tolerating liquid diet.
--- NOTE | 2017-01-29 16:49 | XR ---
EXAMINATION TYPE: XR ankle limited LT DATE OF EXAM: 01/29/2017 COMPARISON: NONE HISTORY: Pain and swelling TECHNIQUE: 2 views FINDINGS: There is mild spurring of the anterior malleolus. Ankle mortise is anatomic. I see no fract ure nor dislocation. There is mild soft tissue swelling around the ankle joint. IMPRESSION: Soft tissue swelling. Mild degenerative spurring. No fracture.
[2017-01-29 17:54] LABS: Glucose,Whole Blood 98 mg/dL (75-99)
--- NOTE | 2017-01-29 18:22 | P.PN ---
Progress Note - Text DATE OF SERVICE: 01/28/2017 PRESENTING COMPLAINT: Abdominal pain HISTORY OF PRESENT ILLNESS: 66-year-old female presented with 2 days of increasing abdominal pain nausea and vomiting. Had a bowel movement on 01/23/2017. Diagnostic imaging revealed high-grade small bowel obstruction. NG tube placed, small bowel obstruction resolving, NG tube removed per surgery. INTERVAL HISTORY: 01/28/2017: Lying in bed appears comfortable, NG tube in place. Mild abdominal pain, nothing by mouth for surgery today. 01/27/2017: Lying in bed, appears comfortable, NG tube removed. Had a BM yesterday evening. Diet advanced to clear liquids patient's tolerating this well. Abdominal pain is all but resolved. Ambulatory to and from the bathroom independently, tolerating her clear liquid diet, last BM 01/26/2017. 01/26/2017: Patient sitting up in the recliner, appears comfortable. NG tube in place clamped currently for medication administration. Remains nothing by mouth, Passing gas, states her abdominal pain is better today.Ambulatory with assistance. REVIEW OF SYSTEMS: Done for constitutional ,cardiovascular, GI, pulmonary with relevant findings as above. CURRENT MEDICATIONS Zyloprim 100 mg by mouth daily, Norvasc 5 mg by mouth daily, Lipitor 20 mg by mouth at bedtime, Flexeril 10 mg by mouth daily, Lanoxin 125 g by mouth daily Apresoline 10 mg IV push every 6 hours when necessary for systolic blood pressure greater than 160. Antivert will 0.5 mg by mouth 3 times a day, Protonix 40 mg IV daily, 0.9% normal saline thousand milliliters at 125 mL an hour PHYSICAL EXAM VITAL SIGNS: Temperature 98.0, pulse 51, respirations 16, blood pressure 157/75, oxygen saturation 87% on room air. GENERAL APPEARANCE: Lying in bed, appears comfortable. HEENT: Oral cavity normal , NG tube in the left nares EYES : Pupils equal. Conjunctiva normal. NECK: JVD not raised. Mass not palpable. RESPIRATORY: effort normal . Fair air entry CARDIOVASCULAR: Irregular rhythm. No edema. ABDOMEN: Soft. Liver and spleen not palpable. No tenderness. No mass palpable. PSYCHIATRY: Alert and oriented x3. Mood and affect normal. INVESTIGATIONS: White blood cell count 11.1, platelet count 112, sodium 139, potassium 3.5, blood glucose monitoring noted. ASSESSMENT: -Acute small bowel obstruction, present on admission on the [facility] -Primary atrial fibrillation, rate controlled, patient has not chosen to be on anticoagulation, on an aspirin only -Diabetes mellitus type 2 on oral hypoglycemics. -Gastro-soft to reflux disease. -Essential hypertension. -Obstructive sleep apnea uses CPAP machine. -Obesity body mass index 39.1. PLAN: Patient to be taken to the OR later today for small bowel resection, exploratory laparoscopy. Plan of care discussed with the patient the bedside she is in agreement. We will continue to follow closely. SYSTEMS ADMINISTRATOR statement: Patient was seen and examined by nurse practitioner Jeane Griffiths and all elements of the case discussed with attending Dr. Syed
--- NOTE | 2017-01-29 18:31 | P.PN ---
Progress Note - Text DATE OF SERVICE: 01/29/2017 PRESENTING COMPLAINT: Abdominal pain HISTORY OF PRESENT ILLNESS: 66-year-old female presented with 2 days of increasing abdominal pain nausea and vomiting. Had a bowel movement on 01/23/2017. Diagnostic imaging revealed high-grade small bowel obstruction. NG tube placed, small bowel obstruction resolving, NG tube removed per surgery. NG tube replaced due to worsening small bowel obstruction, status post exploratory laparoscopy lysis of adhesions at the greater omentum and lysis of adhesions to the interloop of the small bowel. INTERVAL HISTORY: 01/29/2017: Lying in bed appears comfortable. NG tube in the left nares, mild abdominal pain incision covered with a dry surgical dressing that impregnated with silver. NG canister has dark green bilious material in it area patient states she feels pretty good, patient remains nothing by mouth for the time being type to be driven by surgery. Patient does have an epidural for pain management. Complains about left ankle pain from a previous injury. And as such patient has not been out of bed. 01/28/2017: Lying in bed appears comfortable, NG tube in place. Mild abdominal pain, nothing by mouth for surgery today. 01/27/2017: Lying in bed, appears comfortable, NG tube removed. Had a BM yesterday evening. Diet advanced to clear liquids patient's tolerating this well. Abdominal pain is all but resolved. Ambulatory to and from the bathroom independently, tolerating her clear liquid diet, last BM 01/26/2017. 01/26/2017: Patient sitting up in the recliner, appears comfortable. NG tube in place clamped currently for medication administration. Remains nothing by mouth, Passing gas, states her abdominal pain is better today.Ambulatory with assistance. REVIEW OF SYSTEMS: Done for constitutional ,cardiovascular, GI, pulmonary with relevant findings as above. CURRENT MEDICATIONS Zyloprim 100 mg by mouth daily, Norvasc 5 mg by mouth daily, Lipitor 20 mg by mouth at bedtime, Flexeril 10 mg by mouth daily, Lanoxin 125 g by mouth daily Apresoline 10 mg IV push every 6 hours when necessary for systolic blood pressure greater than 160. Antivert will 0.5 mg by mouth 3 times a day, Protonix 40 mg IV daily, 0.9% normal saline thousand milliliters at 125 mL an hour PHYSICAL EXAM VITAL SIGNS: Temperature 97.2, pulse 76, respiratory rate 16, blood pressure 146/75, oxygen saturation 97 on 2 L GENERAL APPEARANCE: Lying in bed, appears comfortable. HEENT: Oral cavity normal , NG tube in the left nares EYES : Pupils equal. Conjunctiva normal. NECK: JVD not raised. Mass not palpable. RESPIRATORY: effort normal . Fair air entry CARDIOVASCULAR: Irregular rhythm. No edema. ABDOMEN: Soft. Liver and spleen not palpable. No tenderness. No mass palpable. PSYCHIATRY: Alert and oriented x3. Mood and affect normal. INVESTIGATIONS: None new ASSESSMENT: -Acute small bowel obstruction, present on admission now status post exploratory laparoscopy lysis of adhesions at the greater omentum and lysis of adhesions to the interloop of the small bowel. -Primary atrial fibrillation, rate controlled, patient has not chosen to be on anticoagulation, on an aspirin only -Diabetes mellitus type 2 on oral hypoglycemics. -Gastro-soft to reflux disease. -Essential hypertension. -Obstructive sleep apnea uses CPAP machine. -Obesity body mass index 39.1. PLAN: Removal of epidural tomorrow, heparin to be held for that epidural removal. Physical therapy for ambulation, discharge pending passage of flatus and tolerating liquid diet. Plan of care discussed with the patient at the bedside she is in agreement we will continue to follow closely. SENIOR TEST ANALYST statement: Patient was seen and examined by nurse practitioner Jeane Griffiths and all elements of the case discussed with attending Dr. Syed
[2017-01-30 00:14] LABS: Glucose,Whole Blood 101 mg/dL (75-99)
[2017-01-30 05:38] LABS: Glucose,Whole Blood 94 mg/dL (75-99)
[2017-01-30] MEDS: SODIUM CHLORIDE 0.9% 1,000 ML IV SCH ×3 (05:39→19:14)
--- NOTE | 2017-01-30 07:15 | PN ---
PROGRESS NOTE DATE OF SERVICE: 01/29/2017 ATTENDING NOTE: This patient was seen and examined by me. I discussed with my nurse practitioner, Ms. Griffiths. Patient is status post lysis of adhesions. NG tube remains in place. N.p.o. Lungs are clear and cardiovascular first and second sounds normal. Abdomen dressing in place. Bowel sounds are sluggish. INVESTIGATIONS: White count 10.4, BUN 22, creatinine 1.28. ASSESSMENT: Status post small bowel obstruction followed by lysis of adhesions. Continue current medication and treatment plan and follow. MMODL / IJN: [id number] /
[2017-01-30 08:19] LABS: ALT 29 U/L (9-52); AST 33 U/L (14-36); Alkaline Phosphatase 74 U/L (38-126); Anion Gap 9 mmol/L; Blood Urea Nitrogen 12 mg/dL (7-17); Calcium 8.3 mg/dL (8.4-10.2); Carbon Dioxide 26 mmol/L (22-30); Chloride 105 mmol/L (98-107); Glucose 93 mg/dL (74-99); Non-African American GFR(MDRD) >60 (>60 ml/min/1.73 sqM); Potassium 3.8 mmol/L (3.5-5.1); Sodium 140 mmol/L (137-145); Total Bilirubin 1.2 mg/dL (0.2-1.3); Total Protein 5.6 g/dL (6.3-8.2)
[2017-01-30 08:28] LABS: Basophils % (A) 0 %; CH 27.7; CHCM 30.2; Eosinophils # (A) 0.1 k/uL (0-0.7); Eosinophils % (A) 1 %; HCT 39.9 % (34.0-46.0); HDW 2.64; HGB 12.1 gm/dL (11.4-16.0); Hypochromasia Marked; Large Platelets Flag Moderate; Luc % (Auto) 1; Lymphocytes # (A) 1.2 k/uL (1.0-4.8); Lymphocytes % (A) 14 %; MCH 27.9 pg (25.0-35.0); MCHC 30.3 g/dL (31.0-37.0); MCV 92.3 fL (80.0-100.0); Mean Platelet Volume 11.2; Monocytes # (A) 0.5 k/uL (0-1.0); Monocytes % (A) 5 %; Neutrophils # (A) 6.6 k/uL (1.3-7.7); Neutrophils % (A) 78 %; RBC 4.33 m/uL (3.80-5.40); RDW 15.9 % (11.5-15.5); WBC 8.5 k/uL (3.8-10.6); WBC (Perox) 8.69
[2017-01-30] MEDS: DIGOXIN 125 MCG TAB PO SCH (08:45)
[2017-01-30] MEDS: ATENOLOL 25 MG TAB PO SCH (08:45)
[2017-01-30] MEDS: amLODIPine 5 MG TAB PO SCH (08:45)
[2017-01-30] MEDS: PANTOPRAZOLE 40 MG/10 ML VIAL IV SCH (08:45)
--- NOTE | 2017-01-30 09:12 | P.PN ---
Progress Note - Text 1224 Anesthesia POD 2. Status Post exploratory laparotomy with extensive lysis of adhesions under general endotracheal anesthesia with an epidrual catheter placed at T12 for post surgical pain releif. VAS (0, 2) with Bupivicaine 0.1 % and Dilaudid 20 mcg / cc running at 3 cc / hr. Lower extremity strength (4/4). Minimal sedation. Site looks OK. Surgeon would like the epidural catheter removed today, and I will enter an order to that effect.
[2017-01-30 09:23] LABS: Manual Review Performed
--- NOTE | 2017-01-30 10:43 | P.PN ---
<Yoanna Acuna Lisa - Last Filed: 01/30/17 10:30> Subjective 66-year-old female sitting up on the edge of the bed, nasal gastric tube in place. Patient states she has not had a bowel movement has not been passing any gas. States less abdominal pain. The nasal gastric tube has put out 100ml since 6 AM for the last 3 hours. Currently has an abdominal binder in place surgical dressing dry white count 8.5 hemoglobin 12.9 electrolytes within normal limits Postop on January 28 Open exploratory laparotomy with lysis of adhesions greater omentum to abdominal wall. Lysis of adhesions of interloop small bowel Objective - Vital Signs Vital signs: Vital Signs Temp 97.1 F L 01/30/17 07:00 Pulse 80 01/30/17 07:00 Resp 16 01/30/17 07:00 BP 138/70 01/30/17 07:00 Pulse Ox 98 01/30/17 07:00 Intake & Output 01/29/17 01/30/17 01/30/17 18:59 06:59 18:59 Intake Total 1000 Output Total 1000 1500 Balance -1000 -500 Intake: Intake, IV Titration 900 Amount Sodium Chloride 0.9% 1, 900 000 ml @ 75 mls/hr IV . [id number] [facility] Rx#:[id number] Oral 100 Output: Gastric Drainage 600 400 Urine 400 1100 Other: Voiding Method Indwelling Catheter Indwelling Catheter Indwelling Catheter - Exam Physical exam 66-year-old female resting comfortably in bed appears in no acute distress lungs essentially clear adequate air movement bilaterally on room air Heart S1-S2 audible irregular abdomen soft not distended obese slight surgical discomfort a few hypoactive bowel tones no stool nasal gastric tube to suction extremities no edema noted Venodyne's on bilaterally - Labs CBC & Chem 7: 01/30/17 07:07 01/30/17 07:07 Labs: Abnormal Lab Results - Last 24 Hours (Table) 01/29/17 01/30/17 01/30/17 Range/Units 11:54 00:04 07:07 MCHC 30.3 L (31.0-37.0) g/dL RDW 15.9 H (11.5-15.5) % Plt Count 128 L (150-450) k/uL POC Glucose (mg/dL) 107 H 101 H (75-99) mg/dL Calcium (8.4-10.2) mg/dL Total Protein (6.3-8.2) g/dL Albumin (3.5-5.0) g/dL 01/30/17 Range/Units 07:07 MCHC (31.0-37.0) g/dL RDW (11.5-15.5) % Plt Count (150-450) k/uL POC Glucose (mg/dL) (75-99) mg/dL Calcium 8.3 L (8.4-10.2) mg/dL Total Protein 5.6 L (6.3-8.2) g/dL Albumin 2.9 L (3.5-5.0) g/dL Assessment and Plan Plan: Impression Present on admission nausea vomiting right lower quadrant pain radiating to the epigastric area suspect due to an early small bowel obstruction Type 2 diabetes non-insulin hemoglobin A1c 6.2 Obesity BMI 39 Hypertension essential Present on admission atrial fibrillation per 12-lead EKG unable to determine new onset or chronic on no anticoagulation except aspirin Elevated hemoglobin of 16 Echocardiogram January 26 left ventricular systolic function normal EF 55-60% Hypokalemia Status post 28 of January open exploratory laparotomy with lysis of adhesions greater omentum to the abdominal wall, lysis of adhesions of interloop small bowel for a complete small bowel obstruction Plan To new postop surgical care Remove the indwelling Dixon catheter the epidural has been DC'd per anesthesia Monitor intake and output Repeat labs in the morning pain control DVT and GI prophylaxis Continue nasal gastric tube to suction Increase activity The above impression and plan of care have been discussed and directed by signing physician. Yoanna Acuna nurse practitioner acting as scribe for signing physician. <Carli Sales N - Last Filed: 01/30/17 15:26> Objective - Vital Signs Vital signs: Vital Signs Temp 97.1 F L 01/30/17 07:00 Pulse 80 01/30/17 07:00 Resp 16 01/30/17 07:00 BP 138/70 01/30/17 07:00 Pulse Ox 98 01/30/17 07:00 Intake & Output 01/29/17 01/30/17 01/30/17 18:59 06:59 18:59 Intake Total 1000 525 Output Total 1000 1500 525 Balance -1000 -500 0 Weight 106.59 kg Intake: Intake, IV Titration 900 525 Amount Sodium Chloride 0.9% 1, 900 525 000 ml @ 75 mls/hr IV . [id number] [facility] Rx#:[id number] Oral 100 Output: Gastric Drainage 600 400 Urine 400 1100 525 Uretheral (Dixon) 525 Other: Voiding Method Indwelling Catheter Indwelling Catheter Indwelling Catheter - Labs CBC & Chem 7: 01/30/17 07:07 01/30/17 07:07 Labs: Abnormal Lab Results - Last 24 Hours (Table) 01/30/17 01/30/17 01/30/17 Range/Units 00:04 07:07 07:07 MCHC 30.3 L (31.0-37.0) g/dL RDW 15.9 H (11.5-15.5) % Plt Count 128 L (150-450) k/uL POC Glucose (mg/dL) 101 H (75-99) mg/dL Calcium 8.3 L (8.4-10.2) mg/dL Total Protein 5.6 L (6.3-8.2) g/dL Albumin 2.9 L (3.5-5.0) g/dL 01/30/17 Range/Units 11:37 MCHC (31.0-37.0) g/dL RDW (11.5-15.5) % Plt Count (150-450) k/uL POC Glucose (mg/dL) 114 H (75-99) mg/dL Calcium (8.4-10.2) mg/dL Total Protein (6.3-8.2) g/dL Albumin (3.5-5.0) g/dL Assessment and Plan (1) Peritoneal adhesions with obstruction Status: Acute (2) Morbid obesity due to excess calories Status: Acute (3) Morbid obesity with BMI of 40.0-44.9, adult Status: Acute (4) Atrial fibrillation Status: Acute (5) Hyperlipidemia Status: Acute (6) Left ankle pain Status: Acute (7) Osteoarthritis Status: Acute (8) S/P exploratory laparotomy Status: Acute
[2017-01-30 11:41] LABS: Glucose,Whole Blood 114 mg/dL (75-99)
--- NOTE | 2017-01-30 15:52 | P.PN ---
Progress Note - Text DATE OF SERVICE: 01/30/2017 PRESENTING COMPLAINT: Abdominal pain HISTORY OF PRESENT ILLNESS: 66-year-old female presented with 2 days of increasing abdominal pain nausea and vomiting. Had a bowel movement on 01/23/2017. Diagnostic imaging revealed high-grade small bowel obstruction. NG tube placed, small bowel obstruction resolving, NG tube removed per surgery. NG tube replaced due to worsening small bowel obstruction, status post exploratory laparoscopy lysis of adhesions at the greater omentum and lysis of adhesions to the interloop of the small bowel. INTERVAL HISTORY: 01/30/2017: Sitting up on the edge of the bed appears comfortable NG tube remains in the left nares, no BM no flatus. Abdominal incision covered with a dry dressing and occlusive covering. Managed by surgery. Epidurals DC'd and Dixon was removed. Ambulatory to and from the bathroom. Diet advancement per surgical preference. 01/29/2017: Lying in bed appears comfortable. NG tube in the left nares, mild abdominal pain incision covered with a dry surgical dressing that impregnated with silver. NG canister has dark green bilious material in it area patient states she feels pretty good, patient remains nothing by mouth for the time being type to be driven by surgery. Patient does have an epidural for pain management. Complains about left ankle pain from a previous injury. And as such patient has not been out of bed. 01/28/2017: Lying in bed appears comfortable, NG tube in place. Mild abdominal pain, nothing by mouth for surgery today. 01/27/2017: Lying in bed, appears comfortable, NG tube removed. Had a BM yesterday evening. Diet advanced to clear liquids patient's tolerating this well. Abdominal pain is all but resolved. Ambulatory to and from the bathroom independently, tolerating her clear liquid diet, last BM 01/26/2017. 01/26/2017: Patient sitting up in the recliner, appears comfortable. NG tube in place clamped currently for medication administration. Remains nothing by mouth, Passing gas, states her abdominal pain is better today.Ambulatory with assistance. REVIEW OF SYSTEMS: Done for constitutional ,cardiovascular, GI, pulmonary with relevant findings as above. CURRENT MEDICATIONS Zyloprim 100 mg by mouth daily, Norvasc 5 mg by mouth daily, Lipitor 20 mg by mouth at bedtime, Flexeril 10 mg by mouth daily, Lanoxin 125 g by mouth daily Apresoline 10 mg IV push every 6 hours when necessary for systolic blood pressure greater than 160. Antivert will 0.5 mg by mouth 3 times a day, Protonix 40 mg IV daily, 0.9% normal saline thousand milliliters at 125 mL an hour PHYSICAL EXAM VITAL SIGNS: Temperature 97.1, pulse 80, blood pressure 130/70, respiratory rate 16, oxygen saturation 98% on 2 L. GENERAL APPEARANCE: Sitting on the edge of bed, appears comfortable. HEENT: Oral cavity normal , NG tube in the left nares EYES : Pupils equal. Conjunctiva normal. NECK: JVD not raised. Mass not palpable. RESPIRATORY: effort normal . Fair air entry CARDIOVASCULAR: Irregular rhythm. No edema. ABDOMEN: Soft. Liver and spleen not palpable. No tenderness. No mass palpable. PSYCHIATRY: Alert and oriented x3. Mood and affect normal. INVESTIGATIONS: CBC and BMP unremarkable, Accu-Cheks noted. ASSESSMENT: -Acute small bowel obstruction, present on admission now status post exploratory laparoscopy lysis of adhesions at the greater omentum and lysis of adhesions to the interloop of the small bowel. -Primary atrial fibrillation, rate controlled, patient has not chosen to be on anticoagulation, on an aspirin only -Diabetes mellitus type 2 on oral hypoglycemics. -Gastro-soft to reflux disease. -Essential hypertension. -Obstructive sleep apnea uses CPAP machine. -Obesity body mass index 39.1. PLAN: Continue Physical therapy for ambulation, discharge pending passage of flatus and tolerating liquid diet. Plan of care discussed with the patient at the bedside she is in agreement we will continue to follow closely. COMPUTER APPLICATIONS INSTRUCTOR statement: Patient was seen and examined by nurse practitioner Jeane Griffiths and all elements of the case discussed with attending Dr. Syed
[2017-01-30] MEDS: HEPARIN SODIUM,PORCINE 5,000 UNIT/ML 1 ML VIAL SQ SCH (17:05)
[2017-01-30 17:58] LABS: Glucose,Whole Blood 139 mg/dL (75-99)
--- NOTE | 2017-01-30 18:05 | P.PN ---
Progress Note - Text Patient reevaluated this evening. She presented with history of bowel obstruction. The patient has not ambulated. In fact, despite multiple conversations and encouragement, the patient chooses not to ambulate as suggested to decrease risk for postoperative ileus including pneumonias etc. Patient had complained of left ankle pain with x-rays consistent with edema and swelling. No acute fractures identified. Physical therapy with [facility] was also obtained. I discussed with the patient risks of medical noncompliance including compromise her postoperative recovery which she verbalizes understanding.
[2017-01-30 20:11] LABS: Glucose,Whole Blood 147 mg/dL (75-99)
[2017-01-30] MEDS: LISINOPRIL 10 MG TAB PO SCH (21:47)
[2017-01-31] MEDS: HEPARIN SODIUM,PORCINE 5,000 UNIT/ML 1 ML VIAL SQ SCH ×3 (03:02→17:43)
[2017-01-31 07:45] LABS: Glucose,Whole Blood 125 mg/dL (75-99)
[2017-01-31] MEDS: ATENOLOL 25 MG TAB PO SCH (08:26)
[2017-01-31] MEDS: DIGOXIN 125 MCG TAB PO SCH (08:26)
[2017-01-31] MEDS: amLODIPine 5 MG TAB PO SCH (08:26)
--- NOTE | 2017-01-31 08:37 | PN ---
PROGRESS NOTE DATE OF SERVICE: January 30, 2017 ATTENDING NOTE: This patient seen examined by me. I discussed with my nurse practitioner, Ms. Griffiths. The patient has an NG tube in place, not to suction. Has not passed any flatus. No nausea, vomiting or chest pain. EXAMINATION: Afebrile, blood pressure 162/75. LUNGS; Fair air entry. CARDIOVASCULAR: First and second sounds normal. ABDOMEN: Binder in place. Dressing over incision. Sluggish bowel sounds. INVESTIGATIONS: White count 8.5, hemoglobin 12.1. ASSESSMENT: 1. Status post lysis of adhesions for small bowel obstruction. 2. Persistent atrial fibrillation, rate controlled. Patient has chosen not to be on anticoagulation. PLAN: Continue current medication treatment plan. Encouraged to be out of bed. Getting IV fluids. Oral intake to be advanced as per surgery. MMODL / IJN: [id number] /
[2017-01-31] MEDS: PANTOPRAZOLE 40 MG/10 ML VIAL IV SCH (10:14)
[2017-01-31 12:28] LABS: Glucose,Whole Blood 140 mg/dL (75-99)
--- NOTE | 2017-01-31 14:57 | P.PN ---
Subjective 66-year-old female sitting up on the edge of the bed, nasal gastric tube in place. Patient states she has not had a bowel movement has not been passing any gas. States less abdominal pain. The nasal gastric tube has put out 100ml since 6 AM for the last 3 hours. Currently has an abdominal binder in place surgical dressing dry white count 8.5 hemoglobin 12.9 electrolytes within normal limits. Nursing reports patient has been refusing to ambulate in the hallway when they have requested. Patient additionally is asking for apple juice with a nasal gastric tube in place. Patient states she's hungry. Postop on January 28 Open exploratory laparotomy with lysis of adhesions greater omentum to abdominal wall. Lysis of adhesions of interloop small bowel Objective - Vital Signs Vital signs: Vital Signs Temp 97.2 F L 01/31/17 11:04 Pulse 99 01/31/17 11:04 Resp 20 01/31/17 11:04 BP 180/101 01/31/17 11:04 Pulse Ox 99 01/31/17 11:04 Intake & Output 01/30/17 01/31/17 01/31/17 18:59 06:59 18:59 Intake Total 525 800 Output Total 525 1650 Balance 0 -850 Weight 106.59 kg Intake: Intake, IV Titration 525 600 Amount Sodium Chloride 0.9% 1, 525 600 000 ml @ 75 mls/hr IV . [id number] [facility] Rx#:[id number] Oral 200 Output: Gastric Drainage 900 Urine 525 750 Uretheral (Dixon) 525 Other: Voiding Method Indwelling Catheter Bedside Commode # Voids 2 - Exam Physical exam 66-year-old female resting comfortably in bed appears in no acute distress asking for apple juice to be given states hungry lungs essentially clear adequate air movement bilaterally on room air Heart S1-S2 audible irregular abdomen soft not distended obese slight surgical discomfort abdominal binder in place dressings the surgical to site dry a few hypoactive bowel tones no stool nasal gastric tube to suction extremities no edema noted Venodyne's on bilaterally - Labs CBC & Chem 7: 01/30/17 07:07 01/30/17 07:07 Labs: Abnormal Lab Results - Last 24 Hours (Table) 01/30/17 01/30/17 01/31/17 Range/Units 17:53 19:54 07:43 POC Glucose (mg/dL) 139 H 147 H 125 H (75-99) mg/dL 01/31/17 Range/Units 11:54 POC Glucose (mg/dL) 140 H (75-99) mg/dL Assessment and Plan Plan: Impression Present on admission nausea vomiting right lower quadrant pain radiating to the epigastric area suspect due to an early small bowel obstruction Type 2 diabetes non-insulin hemoglobin A1c 6.2 Obesity BMI 39 Hypertension essential Present on admission atrial fibrillation per 12-lead EKG unable to determine new onset or chronic on no anticoagulation except aspirin Elevated hemoglobin of 16 Echocardiogram January 26 left ventricular systolic function normal EF 55-60% Hypokalemia Status post 28 of January open exploratory laparotomy with lysis of adhesions greater omentum to the abdominal wall, lysis of adhesions of interloop small bowel for a complete small bowel obstruction Medical noncompliant with activity postop compromising postop recovery Plan Continue postop surgical care Remove the indwelling Dixon catheter the epidural has been DC'd per anesthesia Monitor intake and output Repeat labs in the morning pain control DVT and GI prophylaxis Continue nasal gastric tube to suction Increase activity Patient may have apple juice continue suction to gastric tube The above impression and plan of care have been discussed and directed by signing physician. Yoanna Acuna nurse practitioner acting as scribe for signing physician.
[2017-01-31 17:16] LABS: Glucose,Whole Blood 150 mg/dL (75-99)
[2017-01-31] MEDS: hydrALAZINE HCL 20 MG/ML 1 ML VIAL IVP PRN ×2 (17:44→21:44)
--- NOTE | 2017-01-31 18:24 | P.PN ---
Progress Note - Text DATE OF SERVICE: 01/31/2017 PRESENTING COMPLAINT: Abdominal pain HISTORY OF PRESENT ILLNESS: 66-year-old female presented with 2 days of increasing abdominal pain nausea and vomiting. Had a bowel movement on 01/23/2017. Diagnostic imaging revealed high-grade small bowel obstruction. NG tube placed, small bowel obstruction resolving, NG tube removed per surgery. NG tube replaced due to worsening small bowel obstruction, status post exploratory laparoscopy lysis of adhesions at the greater omentum and lysis of adhesions to the interloop of the small bowel. INTERVAL HISTORY: 01/31/2017: Patient seen walking in the hallway with physical therapy, NG tube remains in place in the left nares no BM no flatus, Dixon removed encouraged ambulation. Surgery okayed apple juice as long as NG tube to suction when she has it. Midline incision continues to be covered with surgical dressing. 01/30/2017: Sitting up on the edge of the bed appears comfortable NG tube remains in the left nares, no BM no flatus. Abdominal incision covered with a dry dressing and occlusive covering. Managed by surgery. Epidurals DC'd and Dixon was removed. Ambulatory to and from the bathroom. Diet advancement per surgical preference. 01/29/2017: Lying in bed appears comfortable. NG tube in the left nares, mild abdominal pain incision covered with a dry surgical dressing that impregnated with silver. NG canister has dark green bilious material in it area patient states she feels pretty good, patient remains nothing by mouth for the time being type to be driven by surgery. Patient does have an epidural for pain management. Complains about left ankle pain from a previous injury. And as such patient has not been out of bed. 01/28/2017: Lying in bed appears comfortable, NG tube in place. Mild abdominal pain, nothing by mouth for surgery today. 01/27/2017: Lying in bed, appears comfortable, NG tube removed. Had a BM yesterday evening. Diet advanced to clear liquids patient's tolerating this well. Abdominal pain is all but resolved. Ambulatory to and from the bathroom independently, tolerating her clear liquid diet, last BM 01/26/2017. 01/26/2017: Patient sitting up in the recliner, appears comfortable. NG tube in place clamped currently for medication administration. Remains nothing by mouth, Passing gas, states her abdominal pain is better today.Ambulatory with assistance. REVIEW OF SYSTEMS: Done for constitutional ,cardiovascular, GI, pulmonary with relevant findings as above. CURRENT MEDICATIONS Zyloprim 100 mg by mouth daily, Norvasc 5 mg by mouth daily, Lipitor 20 mg by mouth at bedtime, Flexeril 10 mg by mouth daily, Lanoxin 125 g by mouth daily Apresoline 10 mg IV push every 6 hours when necessary for systolic blood pressure greater than 160. Antivert will 0.5 mg by mouth 3 times a day, Protonix 40 mg IV daily, 0.9% normal saline thousand milliliters at 125 mL an hour PHYSICAL EXAM VITAL SIGNS: Temperature 97.1, pulse 80, blood pressure 130/70, respiratory rate 16, oxygen saturation 98% on 2 L. GENERAL APPEARANCE: Sitting on the edge of bed, appears comfortable. HEENT: Oral cavity normal , NG tube in the left nares EYES : Pupils equal. Conjunctiva normal. NECK: JVD not raised. Mass not palpable. RESPIRATORY: effort normal . Fair air entry CARDIOVASCULAR: Irregular rhythm. No edema. ABDOMEN: Soft. Liver and spleen not palpable. No tenderness. No mass palpable. PSYCHIATRY: Alert and oriented x3. Mood and affect normal. INVESTIGATIONS: LABS: None new Accu-Cheks noted ASSESSMENT: -Acute small bowel obstruction, present on admission now status post exploratory laparoscopy lysis of adhesions at the greater omentum and lysis of adhesions to the interloop of the small bowel. -Primary atrial fibrillation, rate controlled, patient has not chosen to be on anticoagulation, on an aspirin only -Diabetes mellitus type 2 on oral hypoglycemics. -Gastro-soft to reflux disease. -Essential hypertension. -Obstructive sleep apnea uses CPAP machine. -Obesity body mass index 39.1. PLAN: Continue Physical therapy for ambulation, discharge pending passage of flatus and tolerating liquid diet. Patient has been noncompliant therefore delay of postop recovery and discharge. Plan of care discussed with the patient at the bedside she is in agreement we will continue to follow closely. ATTORNEY LAWYER statement: Patient was seen and examined by nurse practitioner Jeane rGiffiths and all elements of the case discussed with attending Dr. Syed
[2017-01-31] MEDS: SODIUM CHLORIDE 0.9% 1,000 ML IV SCH (19:20)
[2017-01-31 20:20] LABS: Glucose,Whole Blood 141 mg/dL (75-99)
[2017-01-31] MEDS: LISINOPRIL 10 MG TAB PO SCH (21:44)
--- NOTE | 2017-02-01 00:23 | P.PN ---
Progress Note - Text Patient reports a bowel movement however unwitnessed. She is eager for appetite. No reports of nausea and vomiting. Nasogastric tube discontinued with start of clears. Ambulation at least 4 times daily advised.
[2017-02-01] MEDS: HEPARIN SODIUM,PORCINE 5,000 UNIT/ML 1 ML VIAL SQ SCH ×3 (00:37→18:50)
[2017-02-01] MEDS: HYDROmorphone 1 MG/ML 1 ML SYRINGE IVP PRN ×2 (01:36→13:29)
--- NOTE | 2017-02-01 02:51 | PN ---
PROGRESS NOTE DATE OF SERVICE: 01/31/2017 ATTENDING NOTE: This patient seen and examined by me. I discussed with my nurse practitioner, Ms. Griffiths. The patient is status post abdominal surgery. NG tube remains in place. Has been out of bed today. No flatus. EXAM: LUNGS; Clear. CARDIOVASCULAR: First and second sounds normal. Accu-Cheks are noted. ASSESSMENT: Nasogastric tube in place. Started on clear liquids per surgery. Encouraged to ambulate more. Has been out of bed. MMODL / IJN: [id number] /
[2017-02-01] MEDS: SODIUM CHLORIDE 0.9% 1,000 ML IV SCH (05:23)
[2017-02-01 06:22] LABS: Glucose,Whole Blood 123 mg/dL (75-99)
[2017-02-01 07:10] LABS: Anisocytosis Slight; Basophils % (A) 0 %; CH 28.3; CHCM 31.9; Eosinophils # (A) 0.1 k/uL (0-0.7); Eosinophils % (A) 1 %; HCT 40.5 % (34.0-46.0); HDW 2.64; HGB 12.6 gm/dL (11.4-16.0); Luc # (Auto) 0.15; Luc % (Auto) 2; Lymphocytes # (A) 1.2 k/uL (1.0-4.8); Lymphocytes % (A) 14 %; MCH 27.7 pg (25.0-35.0); MCV 89.4 fL (80.0-100.0); Mean Platelet Volume 11.3; Monocytes # (A) 0.6 k/uL (0-1.0); Monocytes % (A) 7 %; Neutrophils # (A) 6.6 k/uL (1.3-7.7); Neutrophils % (A) 76 %; RBC 4.53 m/uL (3.80-5.40); WBC 8.7 k/uL (3.8-10.6); WBC (Perox) 8.09
[2017-02-01 07:22] LABS: ALT 21 U/L (9-52); AST 24 U/L (14-36); Alkaline Phosphatase 70 U/L (38-126); Anion Gap 10 mmol/L; Blood Urea Nitrogen 19 mg/dL (7-17); Calcium 8.8 mg/dL (8.4-10.2); Carbon Dioxide 25 mmol/L (22-30); Chloride 107 mmol/L (98-107); Glucose 118 mg/dL (74-99); Non-African American GFR(MDRD) >60 (>60 ml/min/1.73 sqM); Potassium 3.6 mmol/L (3.5-5.1); Sodium 142 mmol/L (137-145); Total Bilirubin 1.2 mg/dL (0.2-1.3); Total Protein 5.5 g/dL (6.3-8.2)
[2017-02-01] MEDS: amLODIPine 5 MG TAB PO SCH (09:38)
[2017-02-01] MEDS: DIGOXIN 125 MCG TAB PO SCH (09:38)
[2017-02-01] MEDS: PANTOPRAZOLE 40 MG/10 ML VIAL IV SCH (09:38)
[2017-02-01] MEDS: ATENOLOL 25 MG TAB PO SCH (09:39)
[2017-02-01 11:21] LABS: Glucose,Whole Blood 128 mg/dL (75-99)
--- NOTE | 2017-02-01 12:23 | P.PN ---
<Arleen Acunane M - Last Filed: 02/01/17 12:18> Subjective 66-year-old female being seen on rounds this morning. Did discuss with the patient importance of ambulation to promote postop recovery. Patient has been encouraged to ambulate in the hallway with assistance at least 4-5 times today. Did note the patient was seen by physical therapy this morning did ambulate with the use of a rolled walker with no difficulties patient's tolerating a clear liquid diet states passing gas no stool urinating no difficulty Status post 28 of January open exploratory laparotomy with lysis of adhesions greater omentum to the abdominal wall, lysis of adhesions of interloop small bowel for a complete small bowel obstruction Objective - Vital Signs Vital signs: Vital Signs Temp 97.7 F 02/01/17 10:42 Pulse 102 H 02/01/17 10:42 Resp 18 02/01/17 10:42 BP 147/77 02/01/17 10:42 Pulse Ox 97 02/01/17 10:42 Intake & Output 01/31/17 02/01/17 02/01/17 18:59 06:59 18:59 Intake Total 600 Output Total 400 Balance 600 -400 Weight 106.59 kg Intake: Intake, IV Titration 600 Amount Sodium Chloride 0.9% 1, 600 000 ml @ 75 mls/hr IV . [id number] [facility] Rx#:[id number] Output: Gastric Drainage 400 Other: # Voids 1 - Exam Physical exam 66-year-old female up ambulating this morning with the use of rolled walker with physical therapy gait not to be steady. Pleasant cooperative oriented 3 appears in no acute distress Lungs essentially clear no shortness of breath on room air sats are 97% no cough noted Heart S1-S2 audible regular denying chest pain Abdomen obese soft slight surgical tenderness. Abdominal binder in place. Bowel tones present. Urinating no difficulty. No nausea vomiting not distended Extremities no edema noted - Labs CBC & Chem 7: 02/01/17 06:25 02/01/17 06:25 Labs: Abnormal Lab Results - Last 24 Hours (Table) 01/31/17 01/31/17 01/31/17 Range/Units 11:54 17:14 20:13 RDW (11.5-15.5) % BUN (7-17) mg/dL Glucose (74-99) mg/dL POC Glucose (mg/dL) 140 H 150 H 141 H (75-99) mg/dL Total Protein (6.3-8.2) g/dL Albumin (3.5-5.0) g/dL 02/01/17 02/01/17 02/01/17 Range/Units 06:18 06:25 06:25 RDW 17.0 H (11.5-15.5) % BUN 19 H (7-17) mg/dL Glucose 118 H (74-99) mg/dL POC Glucose (mg/dL) 123 H (75-99) mg/dL Total Protein 5.5 L (6.3-8.2) g/dL Albumin 2.8 L (3.5-5.0) g/dL 02/01/17 Range/Units 11:11 RDW (11.5-15.5) % BUN (7-17) mg/dL Glucose (74-99) mg/dL POC Glucose (mg/dL) 128 H (75-99) mg/dL Total Protein (6.3-8.2) g/dL Albumin (3.5-5.0) g/dL Assessment and Plan Plan: Impression Present on admission nausea vomiting right lower quadrant pain radiating to the epigastric area suspect due to an early small bowel obstruction Type 2 diabetes non-insulin hemoglobin A1c 6.2 Obesity BMI 39 Hypertension essential Present on admission atrial fibrillation per 12-lead EKG unable to determine new onset or chronic on no anticoagulation except aspirin Elevated hemoglobin of 16 Echocardiogram January 26 left ventricular systolic function normal EF 55-60% Hypokalemia Status post 28 of January open exploratory laparotomy with lysis of adhesions greater omentum to the abdominal wall, lysis of adhesions of interloop small bowel for a complete small bowel obstruction Medical noncompliant with activity postop compromising postop recovery Plan Continue postop surgical care Monitor intake and output Repeat labs in the morning pain control DVT and GI prophylaxis Prepped for probable discharge in the next 24-48 hours Increase activity nursing to ambulate the patient 4-5 times a day The above impression and plan of care have been discussed and directed by signing physician. Yoanna Acuna nurse practitioner acting as scribe for signing physician. <Carli Sales - Last Filed: 02/01/17 22:35> Objective - Vital Signs Vital signs: Vital Signs Temp 98.3 F 09/27/17 14:11 Pulse 86 02/01/17 14:11 Resp 16 02/01/17 14:11 BP 128/84 02/01/17 14:11 Pulse Ox 100 02/01/17 14:11 Intake & Output 02/01/17 02/01/17 02/02/17 06:59 18:59 06:59 Intake Total 600 Output Total 400 Balance -400 600 Weight 106.59 kg Intake: Intake, IV Titration 600 Amount Sodium Chloride 0.9% 1, 600 000 ml @ 75 mls/hr IV . [id number] [facility] Rx#:[id number] Output: Gastric Drainage 400 Other: # Voids 1 2 1 # Bowel Movements 1 1 - Labs CBC & Chem 7: 02/01/17 06:25 02/01/17 06:25 Labs: Abnormal Lab Results - Last 24 Hours (Table) 02/01/17 02/01/17 02/01/17 Range/Units 06:18 06:25 06:25 RDW 17.0 H (11.5-15.5) % BUN 19 H (7-17) mg/dL Glucose 118 H (74-99) mg/dL POC Glucose (mg/dL) 123 H (75-99) mg/dL Total Protein 5.5 L (6.3-8.2) g/dL Albumin 2.8 L (3.5-5.0) g/dL 02/01/17 02/01/17 Range/Units 11:11 18:25 RDW (11.5-15.5) % BUN (7-17) mg/dL Glucose (74-99) mg/dL POC Glucose (mg/dL) 128 H 147 H (75-99) mg/dL Total Protein (6.3-8.2) g/dL Albumin (3.5-5.0) g/dL Assessment and Plan (1) Peritoneal adhesions with obstruction Status: Acute (2) Morbid obesity due to excess calories Status: Acute (3) Morbid obesity with BMI of 40.0-44.9, adult Status: Acute (4) Atrial fibrillation Status: Acute (5) Hyperlipidemia Status: Acute (6) Left ankle pain Status: Acute (7) Osteoarthritis Status: Acute (8) S/P exploratory laparotomy Status: Acute
[2017-02-01 14:12] VITALS: RESP 16
--- NOTE | 2017-02-01 18:26 | P.PN ---
Progress Note - Text DATE OF SERVICE: 02/01/2017 PRESENTING COMPLAINT: Abdominal pain HISTORY OF PRESENT ILLNESS: 66-year-old female presented with 2 days of increasing abdominal pain nausea and vomiting. Had a bowel movement on 01/23/2017. Diagnostic imaging revealed high-grade small bowel obstruction. NG tube placed, small bowel obstruction resolving, NG tube removed per surgery. NG tube replaced due to worsening small bowel obstruction, status post exploratory laparoscopy lysis of adhesions at the greater omentum and lysis of adhesions to the interloop of the small bowel. INTERVAL HISTORY: 02/01/2017: Patient is ambulatory twice today, encourage by surgery to be in the hallway at least 4-5 times today as this will promote her postop recovery. NG tube removed , diet advanced by surgery, had a BM today, although unwitnessed. 01/31/2017: Patient seen walking in the hallway with physical therapy, NG tube remains in place in the left nares no BM no flatus, Dixon removed encouraged ambulation. Surgery okayed apple juice as long as NG tube to suction when she has it. Midline incision continues to be covered with surgical dressing. 01/30/2017: Sitting up on the edge of the bed appears comfortable NG tube remains in the left nares, no BM no flatus. Abdominal incision covered with a dry dressing and occlusive covering. Managed by surgery. Epidurals DC'd and Dixon was removed. Ambulatory to and from the bathroom. Diet advancement per surgical preference. 01/29/2017: Lying in bed appears comfortable. NG tube in the left nares, mild abdominal pain incision covered with a dry surgical dressing that impregnated with silver. NG canister has dark green bilious material in it area patient states she feels pretty good, patient remains nothing by mouth for the time being type to be driven by surgery. Patient does have an epidural for pain management. Complains about left ankle pain from a previous injury. And as such patient has not been out of bed. 01/28/2017: Lying in bed appears comfortable, NG tube in place. Mild abdominal pain, nothing by mouth for surgery today. 01/27/2017: Lying in bed, appears comfortable, NG tube removed. Had a BM yesterday evening. Diet advanced to clear liquids patient's tolerating this well. Abdominal pain is all but resolved. Ambulatory to and from the bathroom independently, tolerating her clear liquid diet, last BM 01/26/2017. 01/26/2017: Patient sitting up in the recliner, appears comfortable. NG tube in place clamped currently for medication administration. Remains nothing by mouth, Passing gas, states her abdominal pain is better today.Ambulatory with assistance. REVIEW OF SYSTEMS: Done for constitutional ,cardiovascular, GI, pulmonary with relevant findings as above. CURRENT MEDICATIONS Zyloprim 100 mg by mouth daily, Norvasc 5 mg by mouth daily, Lipitor 20 mg by mouth at bedtime, Flexeril 10 mg by mouth daily, Lanoxin 125 g by mouth daily Apresoline 10 mg IV push every 6 hours when necessary for systolic blood pressure greater than 160. Antivert will 0.5 mg by mouth 3 times a day, Protonix 40 mg IV daily, 0.9% normal saline thousand milliliters at 125 mL an hour PHYSICAL EXAM VITAL SIGNS: Temperature 97.7, pulse 81, respiratory rate 18, blood pressure 132/82, oxygen saturation 98% on 2 L GENERAL APPEARANCE: Lying in bed, appears comfortable. HEENT: Oral cavity normal EYES : Pupils equal. Conjunctiva normal. NECK: JVD not raised. Mass not palpable. RESPIRATORY: effort normal . Fair air entry CARDIOVASCULAR: Irregular rhythm. No edema. ABDOMEN: Soft. Liver and spleen not palpable. Mild tenderness. No mass palpable. Midline incision covered with a dry dressing no drainage. PSYCHIATRY: Alert and oriented x3. Mood and affect normal. INVESTIGATIONS: Labs: BUN 19 creatinine 0.81 Accu-Cheks noted ASSESSMENT: -Acute small bowel obstruction, present on admission now status post exploratory laparoscopy lysis of adhesions at the greater omentum and lysis of adhesions to the interloop of the small bowel. -Persistent atrial fibrillation, rate controlled, patient has not chosen to be on anticoagulation, on an aspirin only -Diabetes mellitus type 2 on oral hypoglycemics. -Gastroesophageal reflux disease -Essential hypertension. -Obstructive sleep apnea uses CPAP machine. -Obesity body mass index 39.1. PLAN: Continue Physical therapy for ambulation, discharge pending further passage of flatus, stool and tolerating her diet. Patient has not followed postop activity recommendations therefore delay of postop recovery and discharge. Plan of care discussed with the patient at the bedside she is in agreement we will continue to follow closely. GUN NUMBERER statement: Patient was seen and examined by nurse practitioner Jeane Griffiths and all elements of the case discussed with attending Dr. Syed
[2017-02-01 18:27] LABS: Glucose,Whole Blood 147 mg/dL (75-99)
[2017-02-01] MEDS ORDERED: BISACODYL 10 MG SUPP RECTAL STA (18:57)
--- NOTE | 2017-02-01 20:15 | PN ---
PROGRESS NOTE DATE OF SERVICE: 02/01/2017 ATTENDING NOTE: This patient seen and examined by me. I discussed with nurse practitioner, Ms. Griffiths. Patient status post abdominal surgery for small bowel obstruction with adhesion lysis. NG tube has been out. The patient did tolerate liquids. Did have a bowel movement earlier today. Abdominal pain is much better. is here. Patient has been out of bed. EXAMINATION: Afebrile, blood pressure 132/82. ABDOMEN: Soft. Mild tenderness. Bowel sounds present. LUNGS: Clear. INVESTIGATIONS: White count 8.7, hemoglobin 12.6 potassium 3.6. ASSESSMENT: Status post abdominal surgery with adhesion lysis for small bowel obstruction, clinically improving. Other medical conditions stable. Patient is encouraged to ambulate. Diet is being advanced per surgery. Follow. MMODL / IJN: [id number] /
[2017-02-01] MEDS: LISINOPRIL 10 MG TAB PO SCH (20:36)
[2017-02-01] MEDS ORDERED: MELATONIN 3 MG TABLET PO SCH (21:00)
--- NOTE | 2017-02-01 22:35 | P.PN ---
Progress Note - Text Patient seen and evaluated this evening. She has increased abdominal distention. She is tolerating liquids. She reports decreased flatus. No increased abdominal pain. Agreeable with suppository. Liquid diet only. Continue ambulation advised.
[2017-02-02 01:23] LABS: Glucose,Whole Blood 98 mg/dL (75-99)
[2017-02-02] MEDS: HEPARIN SODIUM,PORCINE 5,000 UNIT/ML 1 ML VIAL SQ SCH ×2 (01:33→08:34)
[2017-02-02 06:03] LABS: Glucose,Whole Blood 107 mg/dL (75-99)
[2017-02-02] MEDS ORDERED: PANTOPRAZOLE 40 MG TABLET PO SCH (07:30)
[2017-02-02 08:01] LABS: Basophils % (A) 1 %; CH 27.9; Eosinophils # (A) 0.1 k/uL (0-0.7); Eosinophils % (A) 2 %; HCT 40.3 % (34.0-46.0); HDW 2.58; HGB 12.6 gm/dL (11.4-16.0); Hypochromasia Slight; Luc # (Auto) 0.18; Luc % (Auto) 2; Lymphocytes # (A) 1.3 k/uL (1.0-4.8); Lymphocytes % (A) 17 %; MCH 28.3 pg (25.0-35.0); MCHC 31.3 g/dL (31.0-37.0); MCV 90.3 fL (80.0-100.0); Mean Platelet Volume 9.8; Monocytes # (A) 0.5 k/uL (0-1.0); Monocytes % (A) 6 %; Neutrophils # (A) 5.4 k/uL (1.3-7.7); Neutrophils % (A) 72 %; RBC 4.47 m/uL (3.80-5.40); WBC 7.5 k/uL (3.8-10.6); WBC (Perox) 7.51
[2017-02-02] MEDS: SODIUM CHLORIDE 0.9% 1,000 ML IV SCH (08:02)
[2017-02-02 08:32] LABS: ALT 29 U/L (9-52); AST 21 U/L (14-36); Alkaline Phosphatase 67 U/L (38-126); Anion Gap 11 mmol/L; Blood Urea Nitrogen 12 mg/dL (7-17); Calcium 8.6 mg/dL (8.4-10.2); Carbon Dioxide 24 mmol/L (22-30); Chloride 102 mmol/L (98-107); Glucose 105 mg/dL (74-99); Non-African American GFR(MDRD) >60 (>60 ml/min/1.73 sqM); Potassium 3.2 mmol/L (3.5-5.1); Sodium 137 mmol/L (137-145); Total Bilirubin 1.4 mg/dL (0.2-1.3); Total Protein 5.6 g/dL (6.3-8.2)
[2017-02-02] MEDS: HYDROcodone/APAP 5-325MG 1 EACH TAB PO PRN ×2 (08:34→15:54)
[2017-02-02] MEDS: ATENOLOL 25 MG TAB PO SCH (08:35)
[2017-02-02] MEDS: DIGOXIN 125 MCG TAB PO SCH (08:35)
[2017-02-02] MEDS: amLODIPine 5 MG TAB PO SCH (08:35)
[2017-02-02 11:58] LABS: Glucose,Whole Blood 133 mg/dL (75-99)
--- NOTE | 2017-02-02 12:47 | P.PN ---
<Arleen Acunane M - Last Filed: 02/02/17 12:39> Subjective 66-year-old female being seen on rounds. Patient has ambulated in the hallway 3 times this morning. Patient states she's passing gas. There is no document stool. Patient did have a bowel movement last night. Patient's tolerating a clear liquid diet abdomen is less distended this morning patient states less abdominal pain this morning Status post 28 of January open exploratory laparotomy with lysis of adhesions greater omentum to the abdominal wall, lysis of adhesions of interloop small bowel for a complete small bowel obstruction Objective - Vital Signs Vital signs: Vital Signs Temp 98.2 F 02/02/17 07:00 Pulse 93 02/02/17 07:00 Resp 16 02/02/17 07:00 BP 147/79 02/02/17 07:00 Pulse Ox 99 02/02/17 07:00 Intake & Output 02/01/17 02/02/17 02/02/17 18:59 06:59 18:59 Intake Total 600 900 Balance 600 900 Weight 106.59 kg Intake: Intake, IV Titration 600 900 Amount Sodium Chloride 0.9% 1, 600 900 000 ml @ 75 mls/hr IV . [id number] [facility] Rx#:[id number] Other: Voiding Method Bedside Commode # Voids 2 1 # Bowel Movements 1 1 - Exam Physical exam 66-year-old female sitting up in a chair tolerating clear liquid diet reports no nausea vomiting. Patient has ambulated in the hallway several times this morning states belching but not passing gas Lungs essentially clear with adequate air movement sats are 97% on room air Heart S1-S2 audible regular Abdomen abdominal binder in place surgical dressing dry soft surgical tenderness appropriate not distended few hypoactive bowel tones noted urinating no difficulty no nausea no vomiting Extremities no edema noted - Labs CBC & Chem 7: 02/02/17 07:10 02/02/17 07:10 Labs: Abnormal Lab Results - Last 24 Hours (Table) 02/01/17 02/02/17 02/02/17 Range/Units 18:25 05:49 07:10 RDW (11.5-15.5) % Potassium 3.2 L (3.5-5.1) mmol/L Glucose 105 H (74-99) mg/dL POC Glucose (mg/dL) 147 H 107 H (75-99) mg/dL Total Bilirubin 1.4 H (0.2-1.3) mg/dL Total Protein 5.6 L (6.3-8.2) g/dL Albumin 3.0 L (3.5-5.0) g/dL 02/02/17 02/02/17 Range/Units 07:10 11:55 RDW 16.0 H (11.5-15.5) % Potassium (3.5-5.1) mmol/L Glucose (74-99) mg/dL POC Glucose (mg/dL) 133 H (75-99) mg/dL Total Bilirubin (0.2-1.3) mg/dL Total Protein (6.3-8.2) g/dL Albumin (3.5-5.0) g/dL Assessment and Plan Plan: Impression Present on admission nausea vomiting right lower quadrant pain radiating to the epigastric area suspect due to an early small bowel obstruction Type 2 diabetes non-insulin hemoglobin A1c 6.2 Obesity BMI 39 Hypertension essential Present on admission atrial fibrillation per 12-lead EKG unable to determine new onset or chronic on no anticoagulation except aspirin Elevated hemoglobin of 16 Echocardiogram January 26 left ventricular systolic function normal EF 55-60% Hypokalemia Status post 28 of January open exploratory laparotomy with lysis of adhesions greater omentum to the abdominal wall, lysis of adhesions of interloop small bowel for a complete small bowel obstruction Medical noncompliant with activity postop compromising postop recovery Plan Continue postop surgical care Monitor intake and output Repeat labs in the morning pain control DVT and GI prophylaxis Continue clear liquid diet advance as tolerated once bowel function resumes Increase activity nursing to ambulate the patient 4-5 times a day The above impression and plan of care have been discussed and directed by signing physician. Yoanna Acuna nurse practitioner acting as scribe for signing physician. <Carli Sales - Last Filed: 02/02/17 22:48> Objective - Vital Signs Vital signs: Vital Signs Temp 96.9 F L 02/02/17 15:00 Pulse 74 02/02/17 15:00 Resp 16 02/02/17 15:00 BP 167/86 02/02/17 15:00 Pulse Ox 96 02/02/17 15:00 Intake & Output 02/02/17 02/02/17 02/03/17 06:59 18:59 06:59 Intake Total 900 118 Balance 900 118 Weight 106.59 kg Intake: Intake, IV Titration 900 Amount Sodium Chloride 0.9% 1, 900 000 ml @ 75 mls/hr IV . [id number] [facility] Rx#:[id number] Oral 118 Other: Voiding Method Bedside Commode # Voids 1 2 # Bowel Movements 1 2 - Labs CBC & Chem 7: 02/02/17 07:10 02/02/17 07:10 Labs: Abnormal Lab Results - Last 24 Hours (Table) 02/02/17 02/02/17 02/02/17 Range/Units 05:49 07:10 07:10 RDW 16.0 H (11.5-15.5) % Potassium 3.2 L (3.5-5.1) mmol/L Glucose 105 H (74-99) mg/dL POC Glucose (mg/dL) 107 H (75-99) mg/dL Total Bilirubin 1.4 H (0.2-1.3) mg/dL Total Protein 5.6 L (6.3-8.2) g/dL Albumin 3.0 L (3.5-5.0) g/dL 02/02/17 Range/Units 11:55 RDW (11.5-15.5) % Potassium (3.5-5.1) mmol/L Glucose (74-99) mg/dL POC Glucose (mg/dL) 133 H (75-99) mg/dL Total Bilirubin (0.2-1.3) mg/dL Total Protein (6.3-8.2) g/dL Albumin (3.5-5.0) g/dL Assessment and Plan (1) Peritoneal adhesions with obstruction Status: Acute (2) Morbid obesity due to excess calories Status: Acute (3) Morbid obesity with BMI of 40.0-44.9, adult Status: Acute (4) Atrial fibrillation Status: Acute (5) Hyperlipidemia Status: Acute (6) Left ankle pain Status: Acute (7) Osteoarthritis Status: Acute (8) S/P exploratory laparotomy Status: Acute
[2017-02-02] MEDS: POTASSIUM CHLORIDE ER 20 MEQ TAB.ER PO SCH ×2 (13:24→15:30)
[2017-02-02] MEDS ORDERED: NAPROXEN 250 MG TAB PO PRN (14:18)
[2017-02-02] MEDS ORDERED: Magnesium Replacement Protocol 1 EACH MISC MISCELLANE PRN (14:42)
[2017-02-02 16:04] VITALS: BP 167/86; PULSE 74; TEMP 96.9
--- NOTE | 2017-02-02 20:18 | P.DS ---
Providers Date of admission: 01/24/17 23:22 Attending physician: Kenton Syed Consults: 01/25/17 00:32 Consult Physician Routine Consulting Provider: Mitzi Macias Consult Reason/Comments: SBO Do you want consulting provider notified?: Yes, Notify in am Primary care physician: Tommie [facility] Course: [age]-year-old woman with a past history multiple medical problems was admitted with acute small bowel obstruction. Patient underwent exploratory laparoscopic as well as lysis of adhesions by Dr. Sales. Patient also had multiple other medical problems including atrial fibrillation, diabetes was type 2 diabetes and sleep apnea. Diet was advanced. Patient improved significantly. Dr. Ortiz recommended the patient be discharged and follow-up in the outpatient setting. The patient be discharged in a stable condition with guarded prognosis. Total time taken 35 minutes. On exam vitals stable. Cardio S1 and S2 normal. Respirator system no rhonchi no crackles. Abdomen soft status post recent surgery. Nervous system system no focal deficit. Final diagnosis 1. Acute small bowel option status post expert laparoscope the as well as some lysis of adhesions. 2. Persistent atrial fibrillation rate controlled. 3. Diabetes was type II 4. GERD 5. Essential hypertension 6. Obstructive sleep apnea on CPAP 7. Obesity. Patient Condition at Discharge: Good Plan - Discharge Summary New Discharge Prescriptions: New HYDROcodone/APAP 5-325MG [[place] 5-325] 1 each PO Q4HR PRN #30 tab PRN Reason: Moderate Pain Continue Omeprazole 40 mg PO DAILY PRN PRN Reason: Indigestion Digoxin [Lanoxin] 125 mcg PO DAILY amLODIPine [Norvasc] 5 mg PO DAILY Atenolol [Tenormin] 12.5 mg PO DAILY Cyclobenzaprine [Flexeril] 10 mg PO DAILY PRN PRN Reason: Spasms Meclizine [Antivert] 12.5 mg PO TID PRN PRN Reason: Vertigo Allopurinol [Zyloprim] 100 mg PO DAILY Naproxen 500 mg PO Q12H PRN PRN Reason: Pain Benazepril HCl 10 mg PO HS Rosuvastatin [Crestor] 10 mg PO HS metFORMIN HCL [Glucophage] 500 mg PO BID #0 Discharge Medication List Atenolol [Tenormin] 12.5 mg PO DAILY 01/13/14 [History] Cyclobenzaprine [Flexeril] 10 mg PO DAILY PRN 01/13/14 [History] Digoxin [Lanoxin] 125 mcg PO DAILY 01/13/14 [History] Omeprazole 40 mg PO DAILY PRN 01/13/14 [History] amLODIPine [Norvasc] 5 mg PO DAILY 01/13/14 [History] Allopurinol [Zyloprim] 100 mg PO DAILY 01/24/17 [History] Benazepril HCl 10 mg PO HS 01/24/17 [History] Meclizine [Antivert] 12.5 mg PO TID PRN 01/24/17 [History] Naproxen 500 mg PO Q12H PRN 01/24/17 [History] Rosuvastatin [Crestor] 10 mg PO HS 01/24/17 [History] HYDROcodone/APAP 5-325MG [[place] 5-325] 1 each PO Q4HR PRN #30 tab 02/02/17 [Rx] metFORMIN HCL [Glucophage] 500 mg PO BID #0 02/02/17 [Rx] Follow up Appointment(s)/Referral(s): [facility], [NON-STAFF] - Tommie Plasencia MD [Primary Care Provider] - 3 Days (Office has patient information and will be contacting patient to set up follow up appointment.) Carli Sales MD [STAFF PHYSICIAN] - 03/14/17 (Please call to confirm time) Ambulatory/Diagnostic Orders: Basic Metabolic Panel [LAB.AMB] Location: Determined By Patient Patient Instructions/Handouts: Bowel Obstruction (GEN) Activity/Diet/Wound Care/Special Instructions: Full liquid diet. May have soft diet 3 days following disharge. No lifting over 4 pounds in 4 weeks. May shower. No bathtub soaks. Maxide on hold Discharge Disposition: HOME SELF-CARE
== END 2017-02-02 16:00 | disposition home or self-care (01) | DRG 336 ==
LOC: EC 20:46 → 3SUR 23:22
PROVIDERS: ADMIT Hospitalist; ATTEND Hospitalist
PROC: 0DN80ZZ Release Small Intestine, Open Approach (ICD-10-PCS; 2017-01-28)
PROC: 0DNA0ZZ Release Jejunum, Open Approach (ICD-10-PCS; principal; 2017-01-28 11:00)
DX: K56.5 Intestinal adhesions [bands] with obstruction (postinfection) (principal); I48.1 Persistent atrial fibrillation; Z68.41 Body mass index [BMI] 40.0-44.9, adult; I50.32 Chronic diastolic (congestive) heart failure; I48.2 Chronic atrial fibrillation; I11.0 Hypertensive heart disease with heart failure; E11.9 Type 2 diabetes mellitus without complications; G47.33 Obstructive sleep apnea (adult) (pediatric); K21.9 Gastro-esophageal reflux disease without esophagitis; E66.01 Morbid (severe) obesity due to excess calories; M10.9 Gout, unspecified; E87.6 Hypokalemia; E78.5 Hyperlipidemia, unspecified; M19.90 Unspecified osteoarthritis, unspecified site; M25.572 Pain in left ankle and joints of left foot; R01.1 Cardiac murmur, unspecified; Z79.899 Other long term (current) drug therapy; Z79.82 Long term (current) use of aspirin; Z90.710 Acquired absence of both cervix and uterus; Z90.49 Acquired absence of other specified parts of digestive tract; Z82.49 Family history of ischemic heart disease and other diseases of the circulatory system; Z83.3 Family history of diabetes mellitus; Z91.19 Patient's noncompliance with other medical treatment and regimen; Z79.84 Long term (current) use of oral hypoglycemic drugs
CPT/HCPCS: 36415; 43753; 74000; 74020; 74177; 80048; 80053; 81001; 83036; 83605; 83690; 83735; 84100; 84443; 84484; 85025; 85610; 93005; 93306; 96361; 96374; 96375; 96376; 99285

== ENCOUNTER → 2017-11-28 | Outpatient (CLI) | payer MEDICARE ==
--- NOTE | 2017-11-28 12:53 | CT ---
EXAMINATION TYPE: CT abdomen pelvis w con DATE OF EXAM: 11/28/2017 COMPARISON: 01/24/2017 HISTORY: Microscopoic hematuria CT DLP: 1972.8 mGycm CONTRAST: CT scan of the abdomen and pelvis is performed with Oral Contrast and with IV Contrast, patient injec wayne with 100 mL of Isovue 300. FINDINGS: LUNG BASES-: No visible nodule. No infiltrate. LIVER/GB: Cholecystectomy clips are in place. No space occupying hepatic lesion. Biliary tree is o f normal caliber. PANCREAS: No inflammation. No distinct mass. SPLEEN: No splenic enlargement. No lesion seen. ADRENALS: No nodule. No thickening. KIDNEYS/BLADDER: No hydronephrosis. No nephrolithiasis. No distinct renal mass. Urinary bladder g rossly unremarkable. BOWEL: Midline umbilical hernia contains a short segment of bowel without obstruction at this time. N ormal appendix. Normal bowel caliber. No inflammation. GENITAL ORGANS: No gross abnormality. LYMPH NODES: No greater than 1cm abdominal or pelvic lymph nodes are appreciated. AORTA: No significant abnormality. OSSEOUS STRUCTURES: No significant abnormality is seen. OTHER: No significant additional abnormality is seen. IMPRESSION: 1. No significant abnormality to account for the patient's symptoms of microscopic hematuria. Correla te clinically. 2. Umbilical hernia contains a short segment of bowel.
== END | disposition home or self-care (01) ==
LOC: RADCTMAIN 10:51
PROVIDERS: ATTEND Urology
DX: K42.9 Umbilical hernia without obstruction or gangrene (principal)
CPT/HCPCS: 82565; 84520; 74177; 36415; Q9967

== ENCOUNTER → 2017-12-13 | Outpatient (CLI) | payer MEDICARE ==
[2017-12-13 14:37] LABS: Basophils % (A) 0 %; Eosinophils # (A) 0.1 k/uL (0-0.7); Eosinophils % (A) 2 %; HCT 39.6 % (34.0-46.0); Hypochromasia Moderate; Lymphocytes # (A) 2.1 k/uL (1.0-4.8); Lymphocytes % (A) 31 %; MCH 26.7 pg (25.0-35.0); MCHC 30.3 g/dL (31.0-37.0); MCV 88.1 fL (80.0-100.0); Mean Platelet Volume 10.6; Monocytes # (A) 0.3 k/uL (0-1.0); Monocytes % (A) 5 %; Neutrophils # (A) 4.1 k/uL (1.3-7.7); Neutrophils % (A) 61 %; Platelet Count 121 k/uL (150-450); RDW 15.8 % (11.5-15.5); WBC 6.7 k/uL (3.8-10.6)
[2017-12-13 14:53] LABS: ALT 26 U/L (9-52); AST 23 U/L (14-36); Alkaline Phosphatase 54 U/L (38-126); Anion Gap 7 mmol/L; Blood Urea Nitrogen 13 mg/dL (7-17); Calcium 9.2 mg/dL (8.4-10.2); Carbon Dioxide 28 mmol/L (22-30); Chloride 109 mmol/L (98-107); Cholesterol 138 mg/dL (<200); Digoxin <0.4 ng/mL; Glucose 93 mg/dL (74-99); HDL Cholesterol 57 mg/dL (40-60); LDL Cholesterol,Calculated 72 mg/dL (0-99); Potassium 4.2 mmol/L (3.5-5.1); Sodium 144 mmol/L (137-145); Total Protein 6.6 g/dL (6.3-8.2); Triglycerides 46 mg/dL (<150)
== END | disposition home or self-care (01) ==
LOC: LABWHC1 13:16
PROVIDERS: ATTEND Family Medicine
DX: Z00.00 Encounter for general adult medical examination without abnormal findings (principal); I48.91 Unspecified atrial fibrillation; E11.9 Type 2 diabetes mellitus without complications
CPT/HCPCS: 36415; 80053; 80061; 80162; 83036; 84443; 85025

== ENCOUNTER → 2018-01-04 | Outpatient (CLI) | payer MEDICARE ==
--- NOTE | 2018-01-04 17:04 | CONS ---
CONSULTATION DATE OF SERVICE: 01/04/2018 This 67-year-old lady has been [facility]evaluated [facility] for obstructive sleep apnea- hypopnea syndrome. The patient is aware to our office as the patient with obstructive sleep apnea. We did the sleep study in 2010. Since that time, patient is on treatment with CPAP and she has successfully continued to use her equipment every night for the whole night. Her present sleep schedule from around 12:30 - 1:00 and she gets out of bed in the morning around 10:00 a.m. Sometimes she wakes up with a dry mouth, snoring once at night and with nocturia. She lost her weight since her previous titration down from 267 pounds to 223 pounds. Her machine is old. It is more than 5 years old. She also needs some equipment supplies. [place] Sleepiness Scale today is 0. PAST MEDICAL HISTORY: Hypertension, history of atrial fibrillation, diabetes mellitus with peripheral neuropathy, gout, hyperlipidemia, vertigo. PAST SURGICAL HISTORY: Hysterectomy, cholecystectomy, surgery for bowel obstruction in 2017. MEDICATIONS: Metformin, allopurinol, atenolol, digoxin, amlodipine, benazepril, aspirin, atorvastatin, meclizine, gabapentin, Colcrys, meloxicam. SOCIAL HISTORY: No history of smoking. Alcohol consumption none. FAMILY HISTORY: Hypertension, hyperlipidemia, stroke, arthritis, sleep apnea, snoring, diabetes. REVIEW OF SYSTEMS: Sometimes awakenings from sleep. Episodes of vertigo. PHYSICAL EXAMINATION: GENERAL Patient in no distress. VITAL SIGNS BP 149/76, HR 58, RR 16 height 5 foot 7, weight 223, BMI 40.7, temperature 98.5, oxygen saturation on room air 99%. HEENT PERRLA, EOMI, evaluation of oropharynx showed moderately low position of soft palate. Normal uvula. Neck 14 inches in circumference. NECK Supple, no JVD. Thyroid is not palpable. LUNGS Clear to percussion and to auscultation. Good air exchange. No wheezing or rhonchi. HEART S1, S2 sounds regular. ABDOMEN Obese. Soft and nontender. Bowel sounds are present. No organomegaly appreciated. EXTREMITIES No clubbing or cyanosis. GLOBAL COMPENSATION DIRECTOR Awake, alert, and oriented X3. Cranial nerves 2 to 7 intact. There is no fasciculation or atrophy. noted. No focal deficits observed. IMPRESSION: 1. Obstructive sleep apnea-hypopnea syndrome since 2010. The patient continued to use her CPAP equipment, lost 44 pounds since CPAP titration. CPAP unit is old. 2. Diabetes mellitus. 3. Hypertension. 4. History of atrial fibrillation. 5. History of peripheral neuropathy secondary to diabetes. 6. Status post surgical treatment of bowel obstruction in 2017. 7. Gout. 8. Hyperlipidemia. 9. Vertigo. 10.Status post cholecystectomy. 11.Status post total hysterectomy. PLAN: 1. We will repeat CPAP titration because patient lost 44 pounds and wakes up from sleep. 2. Continue losing weight. 3. We will replace patient's CPAP unit. 4. Prescription for all necessary CPAP supplies including mask, tube, filters. 5. No driving if feeling sleepiness. Thank you very much for allowing me to participate in management of your patient. Sincerely, Gurinder Toure MD, PhD, FAASM Diplomat of [place] [employer] [place] [employer] [facility] [place] MMODL / IJN: [id number] /
== END | disposition home or self-care (01) ==
LOC: SLEEP 15:03
PROVIDERS: ATTEND Internal Medicine
DX: G47.33 Obstructive sleep apnea (adult) (pediatric) (principal); R35.1 Nocturia; I10 Essential (primary) hypertension; I48.91 Unspecified atrial fibrillation; E11.42 Type 2 diabetes mellitus with diabetic polyneuropathy; M10.9 Gout, unspecified; R42 Dizziness and giddiness; E78.5 Hyperlipidemia, unspecified; Z79.84 Long term (current) use of oral hypoglycemic drugs; Z98.890 Other specified postprocedural states; Z90.49 Acquired absence of other specified parts of digestive tract; Z90.710 Acquired absence of both cervix and uterus; Z87.19 Personal history of other diseases of the digestive system; Z79.82 Long term (current) use of aspirin; Z79.899 Other long term (current) drug therapy; Z99.89 Dependence on other enabling machines and devices; Z79.891 Long term (current) use of opiate analgesic
CPT/HCPCS: 99211

== ENCOUNTER → 2018-12-19 | Outpatient (CLI) | payer MEDICARE ==
--- NOTE | 2018-12-19 14:08 | US ---
EXAMINATION TYPE: US kidneys/renal and bladder DATE OF EXAM: 12/19/2018 COMPARISON: CT 2018 CLINICAL HISTORY: R31.9 Hematuria. EXAM MEASUREMENTS: Right Kidney: 9.4 x 4.5 x 3.9 cm Left Kidney: 9.4 x 4.5 x 4.5 cm Post Void Residual Volume: 10.9 mL Right Kidney: No hydronephrosis or masses seen Left Kidney: No hydronephrosis or masses seen Bladder: wnl Bilateral Jets seen: Yes Normal Post Void Residual: Yes There is no evidence for hydronephrosis at this point in time. Bilateral cortical renal thinning is s een. There is a slightly lobular contour of the left kidney. Cortical medullary differentiation is ma intained. No nephrolithiasis is seen. No masses are identified. The urinary bladder is anechoic. Bilateral ureteral jets are seen. IMPRESSION: 1. Cortical renal atrophy is mild bilaterally, sequela of medical renal disease. 2. No hydronephrosis or nephrolithiasis.
== END | disposition home or self-care (01) ==
LOC: RADUSWWP 13:35
PROVIDERS: ATTEND Urology
DX: N26.1 Atrophy of kidney (terminal) (principal); N28.9 Disorder of kidney and ureter, unspecified
CPT/HCPCS: 76770

== ENCOUNTER → 2019-01-04 | Outpatient (CLI) | payer MEDICARE ==
[2019-01-04 11:47] LABS: Anisocytosis Slight; Basophils % (A) 1 %; Eosinophils # (A) 0.1 k/uL (0-0.7); Eosinophils % (A) 2 %; HCT 39.3 % (34.0-46.0); HGB 12.4 gm/dL (11.4-16.0); Hypochromasia Slight; Lymphocytes # (A) 1.9 k/uL (1.0-4.8); Lymphocytes % (A) 34 %; MCHC 31.5 g/dL (31.0-37.0); MCV 88.9 fL (80.0-100.0); Mean Platelet Volume 11.6; Monocytes # (A) 0.2 k/uL (0-1.0); Monocytes % (A) 4 %; Neutrophils % (A) 57 %; Platelet Count 121 k/uL (150-450); RBC 4.42 m/uL (3.80-5.40); RDW 17.2 % (11.5-15.5); WBC 5.4 k/uL (3.8-10.6)
[2019-01-04 12:27] LABS: Large Platelets Present; Poikilocytosis (M) Present
[2019-01-04 16:42] LABS: African American GFR (CKD) 58.9 (60.0-200.0); Albumin 4.3 g/dL (3.80-4.90); Albumin/Globulin Ratio 2.26 (1.60-3.17); Anion Gap 8.2 mmol/L (4.00-12.00); BUN/Creat Ratio 14.55 Ratio (12.00-20.00); Calcium 9.4 mg/dL (8.7-10.3); Carbon Dioxide 27.8 mmol/L (21.6-31.8); Chol/HDL Ratio 2.2; Globulin 1.9 g/dL (1.6-3.3); LDL Cholesterol,Calculated 61.8 mg/dL (0.0-131.0); Total Bilirubin 1.5 mg/dL (0.2-1.2); Total Protein 6.2 g/dL (6.2-8.2); VLDL Calculation 10.2 mg/dL (5.00-40.00)
[2019-01-04 19:03] LABS: Hemoglobin A1C 5.9 % (4.0-6.0)
== END | disposition home or self-care (01) ==
LOC: LABWHC1 09:46
PROVIDERS: ATTEND Family Medicine
DX: I48.91 Unspecified atrial fibrillation (principal); E11.9 Type 2 diabetes mellitus without complications; E78.5 Hyperlipidemia, unspecified
CPT/HCPCS: 36415; 80053; 80061; 83036; 84443; 85025

== ENCOUNTER 2019-02-10 14:14 | Emergency (ER) | payer MEDICARE ==
[2019-02-10 14:31] VITALS: BP 165/86; PULSE 80; RESP 16; TEMP 98.6
--- NOTE | 2019-02-10 14:47 | ED ---
Extremity Problem HPI - General Chief complaint: Extremity Problem,Nontraumatic Stated complaint: rt leg lump Time Seen by Provider: 02/10/19 14:28 Source: patient Mode of arrival: ambulatory Limitations: no limitations - History of Present Illness Initial comments: 68-year-old female past history of previous deep venous thrombosis currently on anticoagulation therapy presenting for evaluation of lump right medial calf. Patient states she felt a painless bump on the right medial calf. She states it is not painful. Patient denies any recent surgeries, or active cancer. Patient states that she is compliant with her anticoagulation therapy. Patient states she was concerned this could be a blood clot and felt as a bus to present to [facility] for evaluation. Patient denies any leg swelling numbness tingling or loss sensation or coolness of the extremity.Denies CP, SOB. Remaining review of systems negative upon arrival patient's and laboratory well-appearing no signs of acute distress. Accompanied by her - Related Data Home Medications Medication Instructions Recorded Confirmed Atenolol [Tenormin] 12.5 mg PO DAILY 01/13/14 01/24/17 Cyclobenzaprine [Flexeril] 10 mg PO DAILY PRN 01/13/14 01/24/17 Digoxin [Lanoxin] 125 mcg PO DAILY 01/13/14 01/24/17 Omeprazole 40 mg PO DAILY PRN 01/13/14 01/24/17 amLODIPine [Norvasc] 5 mg PO DAILY 01/13/14 01/24/17 Allopurinol [Zyloprim] 100 mg PO DAILY 01/24/17 01/24/17 Benazepril HCl 10 mg PO HS 01/24/17 01/24/17 Meclizine [Antivert] 12.5 mg PO TID PRN 01/24/17 01/24/17 Naproxen 500 mg PO Q12H PRN 01/24/17 01/24/17 Rosuvastatin [Crestor] 10 mg PO HS 01/24/17 01/24/17 Previous Rx's Medication Instructions Recorded HYDROcodone/APAP 5-325MG [[place] 1 each PO Q4HR PRN #30 tab 02/02/17 5-325] metFORMIN HCL [Glucophage] 500 mg PO BID #0 02/02/17 Allergies Allergy/AdvReac Type Severity Reaction Status Date / Time No Known Allergies Allergy Verified 01/24/17 21:48 Review of Systems ROS Statement: Those systems with pertinent positive or pertinent negative responses have been documented in the HPI. ROS Other: All systems not noted in ROS Statement are negative. Past Medical History Past Medical History: Atrial Fibrillation, Diabetes Mellitus, GERD/Reflux, Hypertension, Sleep Apnea/CPAP/BIPAP Additional Past Medical History / Comment(s): CHRONIC BACK PAIN. CPAP @ 11L. History of Any Multi-Drug Resistant Organisms: None Reported Past Surgical History: Cholecystectomy, Hysterectomy Past Anesthesia/Blood Transfusion Reactions: Motion Sickness Past Psychological History: No Psychological Hx Reported Smoking Status: Never smoker Past Alcohol Use History: None Reported Past Drug Use History: None Reported - Past Family History Mother Family Medical History: Diabetes Mellitus, Hypertension General Exam - General Exam Comments Initial Comments: General: The patient is awake and alert, in no distress, and does not appear acutely ill. Eye: +3 mm pupils are equal, round and reactive to light, extra-ocular movements are intact. No nystagmus. There is normal conjunctiva bilaterally. No signs of icterus. Cardiovascular: There is a regular rate and rhythm. No murmur, rub or gallop is appreciated. Respiratory: Lungs are clear to auscultation, respirations are non-labored, breath sounds are equal. No wheezes, stridor, rales, or rhonchi. Musculoskeletal: Normal ROM, no tenderness. Strength 5/5. Sensation intact. Radial pulses equal bilaterally 2+. Neurological: A&O x 3. CN II-XII intact grossly, There are no obvious motor or sensory deficits. Coordination appears grossly intact. Speech is normal. Skin: Skin is warm and dry and no rashes or lesions are noted. SMall mass measured roughly 3x1 cm of the right medial calf nontender, non erythematous, no LE swelling. Psychiatric: Cooperative, appropriate mood & affect, normal judgment. Limitations: no limitations Course Vital Signs 02/10/19 14:27 Temperature 98.6 F Pulse Rate 80 Respiratory 16 Rate Blood Pressure 165/86 O2 Sat by Pulse 100 Oximetry Medical Decision Making - Medical Decision Making 68-year-old female presents for evaluation of the leg mass. Nonpainful. US (-) DVT. This is mass consistent with possible chronic hematoma. No evidence of abscess on PE. Patient N/V intact. Patient discharged with PCP f/u. If symptoms persist recommend repeat US in 1 week. Patient is to apply warm compresses. Case discussed in detail with Dr. ang agreeable with discharge. Disposition Clinical Impression: Hematoma of right lower extremity Disposition: HOME SELF-CARE Condition: Good Instructions (If sedation given, give patient instructions): Hematoma (ED) Additional Instructions: Please use medication as discussed. Please follow-up with family doctor in the next 2 days of symptoms have not improved. Please return to emergency room if the symptoms increase or worsen or for any other concerns, leg swelling, pain. Is patient prescribed a controlled substance at d/c from ED?: No Referrals: Tommie Plasencia MD [Primary Care Provider] - 1-2 days Time of Disposition: 16:02
--- NOTE | 2019-02-10 15:57 | US ---
EXAMINATION TYPE: US venous doppler duplex LE RT DATE OF EXAM: 02/10/2019 3:45 PM COMPARISON: NONE CLINICAL HISTORY: r/o DVT/ palpable mass medial calf. Pt states palpable lump right medial calf she n oticed today/ pt denies pain or injury/ pt states no known prior DVT SIDE PERFORMED: Right TECHNIQUE: The lower extremity deep venous system is examined utilizing real time linear array sonog tammy with graded compression, doppler sonography and color-flow sonography. VESSELS IMAGED: External Iliac Vein (EIV) Common Femoral Vein Deep Femoral Vein Greater Saphenous Vein * Femoral Vein Popliteal Vein Small Saphenous Vein * Proximal Calf Veins (* superficial vessels) Right Leg: Negative for DVT, area of pt's palpable right medial calf shows hypoechoic, non-vascular area= 2.0 x 0.7 x 1.7 cm IMPRESSION: No evidence of deep venous thrombosis. There is irregular fluid collection in the medial calf that could be chronic hematoma.
== END 2019-02-10 16:12 | disposition home or self-care (01) ==
LOC: EC 14:14
DX: M79.81 Nontraumatic hematoma of soft tissue (principal); I48.91 Unspecified atrial fibrillation; I10 Essential (primary) hypertension; G47.30 Sleep apnea, unspecified; Z79.01 Long term (current) use of anticoagulants; Z79.899 Other long term (current) drug therapy; Z86.718 Personal history of other venous thrombosis and embolism; Z99.89 Dependence on other enabling machines and devices
CPT/HCPCS: 99283

== ENCOUNTER 2023-02-17 00:16 | Emergency (ER) | payer MEDICARE ==
[2023-02-17 00:27] VITALS: RESP 18; TEMP 98.6
[2023-02-17 00:48] VITALS: PULSE 74
[2023-02-17] MEDS: lisinopriL 10 MG TAB PO STA ×2 (00:48→01:29)
--- NOTE | 2023-02-17 01:15 | ED ---
Recheck HPI - General Chief Complaint: Recheck/Abnormal Lab/Rx Stated Complaint: High Bp 181/107, Nose Bleed Time Seen by Provider: 02/17/23 00:23 Source: patient Mode of arrival: wheelchair Limitations: no limitations - History of Present Illness Initial Comments: 72-year-old female presenting with chief complaint of high blood pressure. Patient reports that she was getting a nosebleed this evening. She then checked her blood pressure and noted that it was elevated in the 180 systolic. She report to the ER. Bleeding has stopped at this time. She is asymptomatic. No headache, vision or hearing changes, chest pain, difficulty breathing, abdominal pain, nausea, vomiting, numbness, tingling, weakness. No injury or trauma. - Related Data Home Medications Medication Instructions Recorded Confirmed Cyclobenzaprine [Flexeril] 10 mg PO DAILY PRN 01/13/14 01/24/17 Digoxin [Lanoxin] 125 mcg PO DAILY 01/13/14 01/24/17 Omeprazole 40 mg PO DAILY PRN 01/13/14 01/24/17 amLODIPine [Norvasc] 5 mg PO DAILY 01/13/14 01/24/17 atenoloL [Tenormin] 12.5 mg PO DAILY 01/13/14 01/24/17 Benazepril HCl 10 mg PO HS 01/24/17 01/24/17 Meclizine [Antivert] 12.5 mg PO TID PRN 01/24/17 01/24/17 Naproxen 500 mg PO Q12H PRN 01/24/17 01/24/17 Rosuvastatin [Crestor] 10 mg PO HS 01/24/17 01/24/17 allopurinoL [Zyloprim] 100 mg PO DAILY 01/24/17 01/24/17 Previous Rx's Medication Instructions Recorded HYDROcodone/APAP 5-325MG [[place] 1 each PO Q4HR PRN #30 tab 02/02/17 5-325] metFORMIN HCL [Glucophage] 500 mg PO BID #0 02/02/17 Allergies Allergy/AdvReac Type Severity Reaction Status Date / Time No Known Allergies Allergy Verified 02/17/23 00:20 Review of Systems ROS Statement: Those systems with pertinent positive or pertinent negative responses have been documented in the HPI. ROS Other: All systems not noted in ROS Statement are negative. Past Medical History Past Medical History: Atrial Fibrillation, Diabetes Mellitus, GERD/Reflux, Hypertension, Sleep Apnea/CPAP/BIPAP Additional Past Medical History / Comment(s): CHRONIC BACK PAIN. CPAP @ 11L. History of Any Multi-Drug Resistant Organisms: None Reported Past Surgical History: Cholecystectomy, Hysterectomy Past Anesthesia/Blood Transfusion Reactions: Motion Sickness Past Psychological History: No Psychological Hx Reported Smoking Status: Never smoker Past Alcohol Use History: None Reported Past Drug Use History: None Reported - Past Family History Mother Family Medical History: Diabetes Mellitus, Hypertension General Exam Limitations: no limitations General appearance: alert, in no apparent distress Head exam: Present: atraumatic, normocephalic, normal inspection Eye exam: Present: normal appearance, EOMI ENT exam: Present: mucous membranes moist, other (Dried blood noted in the right nostril, no bleeding) Neck exam: Present: normal inspection, full ROM Respiratory exam: Present: normal lung sounds bilaterally. Absent: respiratory distress, wheezes, rales, rhonchi, stridor Cardiovascular Exam: Present: regular rate, normal rhythm, normal heart sounds. Absent: systolic murmur, diastolic murmur, rubs, gallop, clicks Neurological exam: Present: alert, oriented X3 Psychiatric exam: Present: normal affect, normal mood Skin exam: Present: warm, dry Course Vital Signs 02/17/23 02/17/23 02/17/23 00:18 00:32 00:56 Temperature 98.6 F Pulse Rate 86 74 Respiratory 18 18 Rate Blood Pressure 196/92 167/89 138/91 O2 Sat by Pulse 96 100 Oximetry 02/17/23 01:12 Temperature Pulse Rate Respiratory Rate Blood Pressure 145/91 O2 Sat by Pulse Oximetry Medical Decision Making - Medical Decision Making Was pt. sent in by a medical professional or institution (, PA, CEMENT CAR DUMPER, urgent care, hospital, or alf...) When possible be specific @ -No Did you speak to anyone other than the patient for history (EMS, parent, family, police, friend...)? What history was obtained from this source @ -No Did you review nursing and triage notes (agree or disagree)? Why? @ -I reviewed and agree with nursing and triage notes Were old charts reviewed (outside hosp., previous admission, EMS record, old EKG, old radiological studies, urgent care reports/EKG's, alf records)? Report findings @ -No old charts were reviewed Differential Diagnosis (chest pain, altered mental status, abdominal pain women, abdominal pain men, vaginal bleeding, weakness, fever, dyspnea, syncope, headache, dizziness, GI bleed, back pain, seizure, CVA, palpatations, mental health, musculoskeletal)? @ -not applicable EKG interpreted by me (3pts min.). @ -As above X-rays interpreted by me (1pt min.). @ -None done CT interpreted by me (1pt min.). @ -None done U/S interpreted by me (1pt. min.). @ -None done What testing was considered but not performed or refused? (CT, X-rays, U/S, labs)? Why? @ -None What meds were considered but not given or refused? Why? @ -None Did you discuss the management of the patient with other professionals (professionals i.e. , PA, CEMENT CAR DUMPER, lab, RT, psych nurse, director social service, practicing urologist, teacher, privacy officer, field case manager)? Give summary @ -No Was smoking cessation discussed for >3mins.? @ -No Was critical care preformed (if so, how long)? @ -No Were there social determinants of health that impacted care today? How? (Homelessness, low income, unemployed, alcoholism, drug addiction, transpor tation, low edu. Level, literacy, decrease access to med. care, shelter, rehab)? @ -No Was there de-escalation of care discussed even if they declined (Discuss DNR or withdrawal of care, Hospice)? DNR status @ -No What co-morbidities impacted this encounter? (DM, HTN, Smoking, COPD, CAD, Cancer, CVA, ARF, Chemo, Hep., AIDS, mental health diagnosis, sleep apnea, morbid obesity)? @ -None Was patient admitted / discharged? Hospital course, mention meds given and route, prescriptions, significant lab abnormalities, going to OR and other pertinent info. @ -72-year-old female presented chief complaint of nosebleed and elevated blood pressure. At time of presentation the nosebleed has completely resolved. Patient was initially hypertensive on arrival but has been slowly improving without any intervention. She has no recurrence of nose bleeding in the ER. She feels well. She is given her nighttime dose of Benzapril 10 mg. Discharged home. Follow-up with PCP. Report back to ER with any new or worsening symptoms. Discussed return parameters and answered all questions. Patient conveyed verbal understanding and agreed to the plan. I discussed this case in detail with my attending Dr. Haro Undiagnosed new problem with uncertain prognosis? @ -No Drug Therapy requiring intensive monitoring for toxicity (Heparin, Nitro, Insulin, Cardizem)? @ -No Were any procedures done? @ -No Diagnosis/symptom? @ -Epistaxis Acute, or Chronic, or Acute on Chronic? @ -Acute Uncomplicated (without systemic symptoms) or Complicated (systemic symptoms)? @ -Uncomplicated Side effects of treatment? @ -No Exacerbation, Progression, or Severe Exacerbation? @ -No Poses a threat to life or bodily function? How? (Chest pain, [place], [place], pneumonia, PE, COPD, DKA, ARF, appy, cholecystitis, CVA, Diverticulitis, Homicidal, Suicidal, threat to staff... and all critical care pts) @ -No Disposition Clinical Impression: Epistaxis Disposition: HOME SELF-CARE Condition: Good Instructions (If sedation given, give patient instructions): Nosebleed (ED) Additional Instructions: Follow-up with PCP. Report back to ER with any new or worsening symptoms. Is patient prescribed a controlled substance at d/c from ED?: No Referrals: Tommie Plasencia MD [Primary Care Provider] - 1-2 days Time of Disposition: 01:14
[2023-02-17 01:45] VITALS: BP 145/91
== END 2023-02-17 01:32 | disposition home or self-care (01) ==
LOC: EC 00:16
DX: R04.0 Epistaxis (principal); I10 Essential (primary) hypertension; E11.9 Type 2 diabetes mellitus without complications; K21.9 Gastro-esophageal reflux disease without esophagitis; I48.91 Unspecified atrial fibrillation; Z79.899 Other long term (current) drug therapy
CPT/HCPCS: 99283